=== PATIENT | female | born 1960 | race Caucasian/White ===

== ENCOUNTER 2025-03-08 18:55 | Inpatient (IN) ==
--- NOTE | 2025-03-08 19:33 | Emergency Department Note ---
Impression & Plan Abdominal pain, acute, right upper quadrant, Pancreatitis, acute, Transaminitis, Leukocytosis, Acute cholecystitis, Acute hyperkalemia ED Provider Note HISTORY OF PRESENT ILLNESS: Patient is a 64-year-old female presenting with right upper quadrant abdominal pain. Patient reports that yesterday at around 13 100-14 100, she started having a sharp pain in her right upper quadrant that seem to radiate around into her right posterior shoulder. She states that the symptoms progressively got worse over the last 24 hours and her entire abdomen now hurts. She does report an episode of vomiting earlier this afternoon. Denies any history of abdominal surgeries other than sections. Denies any measured fevers, but does report subjective chills and sweats today. She denies any dysuria or hematuria. She denies any chest pain or shortness of breath. Denies any recent sick contact exposures. She currently rates her pain a 5 out of 10. Reports that today she has been laying in bed all day secondary to pain being worse when she gets up and walks or bends over. ROS: as above PHYSICAL EXAM: Constitutional: Patient appears in no acute distress. HENT: Head: Normocephalic and atraumatic. Eyes: EOMI, PERRL Mouth/Throat: Mucous membranes moist. Neck: Trachea midline. Neck supple. Cardiovascular: RRR, No murmurs, rubs or gallops. Intact distal pulses. Pulmonary/Chest: No respiratory distress. Breath sounds clear and equal bilaterally. No wheezes or rales. Abdominal: Abdomen soft, no rebound or guarding. RUQ TTP Musculoskeletal: No edema, tenderness or deformity noted. Skin: Warm and dry. No rash, erythema, pallor or cyanosis Psychiatric: Appropriate mood and affect for situation. Neurological: Alert and keenly responsive. CN II-XII grossly intact, moving all extremities equally and fully. MDM: - Vitals signs showed hypertension - History obtained via patient. History as above. - Chronic conditions affecting care: none - Differential diagnoses include, but are not limited to: Biliary colic; cholangitis; cholecystitis; hepatitis; right lower lobe pneumonia; pulmonary embolism; pyelonephritis; herpes zoster; perforated duodenal ulcer - Order placed for continuous cardiac monitoring. At this time, monitor showed rate of 85 bpm with normal sinus rhythm, per my interpretation. - External medical records reviewed. - EKG image reviewed interpreted by myself showed normal sinus rhythm. No evidence of acute ischemic changes. No peaked T waves. - Laboratory workup interpreted by myself showed leukocytosis (WBC 108.86); thrombocytopenia (plt 110); normal PT/INR; hyperkalemia (K 6.1); transaminitis (AST 123; ALT 196); elevated lipase (5326); normal total bilirubin; normal troponin - UA negative for infection - Patient given 1L NS, IV dextrose, 5 units IV insulin and 1g IV calcium for hyperkalemia treatment. - US gallbladder showed a oval hypoechoic structure measuring 1.6 x 0.9 cm adjacent to the pancreatic head concerning for potential lymph node or mass. Noted to have cysts in the left liver lobe. Gallbladder is noted to be elongated with layers of tiny stones and sludge dependently but normal wall thickness and negative sonographic Hughes sign. - CT abdomen/pelvis with IV contrast showed edema to the upper abdominal mesentery, inferior to the pancreas and stomach concerning for acute pancreatitis. No evidence of abscess or pseudocyst. Gallbladder wall is thickened and gallbladder is fully distended but not dilated. Concern for potential mild acute cholecystitis. - IV zosyn ordered - Patient was offered pain medication in ER, but she declined. - GI instructional coordinator, Dr. Tomlin, consulted given patient's elevated lipase and transaminitis. He reported at 23:00 that he will see in AM. - Discussed case with gen surgery PA instructional coordinator, Luis Hidalgo, at 23:01. Reports he will come see patient. - Discussion was had with field nurse case manager about patient's case and need for admission - Hospitalist consulted for admission - [facility] ASSESSMENT AND PLAN: Diagnosis: RUQ abdominal pain; acute pancreatitis; transaminitis; leukocytosis; acute hyperkalemia; acute cholecystitis Plan: admit Past Med/Surg History Problem List (Updated 03/08/25 @ 23:49 by Edenilson Clifford PA-C) Acute hyperkalemia (Acute) Acute cholecystitis (Acute) Leukocytosis (Acute) Transaminitis (Acute) Pancreatitis, acute (Acute) Abdominal pain, acute, right upper quadrant (Acute) Adhesive capsulitis of shoulder Medical History (Updated 03/08/25 @ 23:49 by Edenilson Clifford PA-C) DVT (deep venous thrombosis) No pertinent past medical history Surgical History (Updated 03/08/25 @ 23:50 by Edenilson Clifford PA-C) H/O section Tony teeth extracted History of tonsillectomy Fracture of left distal radius Social History Smoking Status: Never smoker Preferred Language: Faroese Feels Safe at Home: Yes Allergies Allergies Allergy/AdvReac Type Severity Reaction Status Date / Time No Known Allergies Allergy Verified 11/02/19 11:18 Home Meds Home Medications Medication Instructions Recorded Confirmed No Known Home Medications 03/08/25 03/08/25 Results & Data (ED) Vital Signs Vital Signs - 24 hr 03/08/25 19:00 03/08/25 19:38 03/08/25 19:55 Temperature 36.1 C L Temperature Source Temporal Artery Scan Pulse Rate 84 74 76 Pulse Rate [Apical] Pulse Rate from SpO2 Sensor Pulse Rhythm Regular Pulse Strength Normal Respiratory Rate 16 18 17 Respiratory Effort / Characteristics Non-Labored Spontaneous Respiratory Depth Normal Respiratory Pattern Regular Blood Pressure 143/78 H 143/68 H Blood Pressure [Left Arm] Blood Pressure Mean 99 89 Blood Pressure Mean [Left Arm] Pulse Oximetry 96 94 Oxygen Delivery Method Room Air Room Air Sepsis Recent Fever Within 48 Hours No Sepsis New/Unexplained Change in Mental Status No Sepsis Action Taken by Nursing No Action Required 03/08/25 19:58 03/08/25 20:00 03/08/25 21:09 Temperature Temperature Source Pulse Rate 72 Pulse Rate [Apical] 69 Pulse Rate from SpO2 Sensor Pulse Rhythm Pulse Strength Respiratory Rate 19 23 Respiratory Effort / Characteristics Non-Labored Spontaneous Respiratory Depth Normal Respiratory Pattern Regular Blood Pressure 142/80 H Blood Pressure [Left Arm] 141/81 H Blood Pressure Mean 100 Blood Pressure Mean [Left Arm] 101 Pulse Oximetry 93 92 94 Oxygen Delivery Method Room Air Room Air Sepsis Recent Fever Within 48 Hours Sepsis New/Unexplained Change in Mental Status Sepsis Action Taken by Nursing 03/08/25 21:09 03/08/25 22:00 03/08/25 22:12 Temperature Temperature Source Pulse Rate 71 78 75 Pulse Rate [Apical] Pulse Rate from SpO2 Sensor 75 Pulse Rhythm Pulse Strength Respiratory Rate 27 H 19 21 Respiratory Effort / Characteristics Respiratory Depth Respiratory Pattern Blood Pressure 141/81 H 142/78 H 142/78 H Blood Pressure [Left Arm] Blood Pressure Mean 101 99 99 Blood Pressure Mean [Left Arm] Pulse Oximetry 95 94 Oxygen Delivery Method Sepsis Recent Fever Within 48 Hours Sepsis New/Unexplained Change in Mental Status Sepsis Action Taken by Nursing 03/08/25 22:42 03/08/25 22:59 03/08/25 23:31 Temperature Temperature Source Pulse Rate 69 67 69 Pulse Rate [Apical] Pulse Rate from SpO2 Sensor Pulse Rhythm Pulse Strength Respiratory Rate 25 H 20 20 Respiratory Effort / Characteristics Respiratory Depth Respiratory Pattern Blood Pressure 106/81 128/66 153/62 H Blood Pressure [Left Arm] Blood Pressure Mean 89 97 107 Blood Pressure Mean [Left Arm] Pulse Oximetry 95 95 96 Oxygen Delivery Method Sepsis Recent Fever Within 48 Hours Sepsis New/Unexplained Change in Mental Status Sepsis Action Taken by Nursing Laboratory Data 03/08/25 21:04 03/08/25 21:04 Lab Results 03/08/25 03/08/25 03/08/25 Range/Units 19:40 21:04 22:38 WBC Cancelled 108.86 H* RBC Cancelled 3.75 L Hgb Cancelled 11.0 L Hct Cancelled 34.9 L MCV Cancelled 93.1 MCH Cancelled 29.3 MCHC Cancelled 31.5 L RDW Std Deviation Cancelled 57.5 H RDW Coeff of Elan Cancelled 16.9 H Plt Count Cancelled 110 L MPV Cancelled 12.2 Immature Gran % (Auto) Cancelled Neut % (Auto) Cancelled Lymph % (Auto) Cancelled Knox % (Auto) Cancelled Eos % (Auto) Cancelled Baso % (Auto) Cancelled Neut # (Auto) Cancelled Lymph # (Auto) Cancelled Knox # (Auto) Cancelled Eos # (Auto) Cancelled Baso # (Auto) Cancelled Immature Gran # (Auto) Cancelled Absolute Nucleated RBC Cancelled Nucleated RBC % (auto) Cancelled Neutrophils % (Manual) Cancelled Band Neutrophils % Cancelled Lymphocytes % (Manual) Cancelled Prolymphocyte % Cancelled Reactive Lymphs % (Man) Cancelled Monocytes % (Manual) Cancelled Eosinophils % (Manual) Cancelled Basophils % (Manual) Cancelled Metamyelocytes % (Man) Cancelled Myelocytes % (Man) Cancelled Promyelocytes % (Man) Cancelled Blast Cells % (Manual) Cancelled Plasma Cell % (Manual) Cancelled Other Cells % Cancelled Nucleated RBC % Cancelled Neutrophils # (Manual) Cancelled Band Neutrophils # Cancelled Total Absolute Neuts Cancelled Lymphocytes # (Manual) Cancelled Prolymphocyte # Cancelled Reactive Lymphs # Cancelled Total Abs Lymphocytes Cancelled Monocytes # (Manual) Cancelled Eosinophils # (Manual) Cancelled Basophils # (Manual) Cancelled Metamyelocytes # (Man) Cancelled Myelocytes # (Manual) Cancelled Promyelocytes # (Man) Cancelled Blast Cells # (Man) Cancelled Plasma Cell # (Manual) Cancelled Other Cells # Cancelled Nucleated RBCs # (Man) Cancelled Hypersegmented Neuts Cancelled Hyposegmented Neuts Cancelled Hypogranular Neuts Cancelled Large Granular Lymphs Cancelled # Lrg Granular Lymphs Cancelled Hairy Cells Cancelled Smudge Cells Cancelled Toxic Granulation Cancelled Toxic Vacuolation Cancelled Dohle Bodies Cancelled Ga Rods Cancelled Platelet Estimate Cancelled Hypogranular Platelets Cancelled Giant Platelets Cancelled Platelet Satelliting Cancelled RBC Morphology Cancelled Polychromasia Cancelled Hypochromasia Cancelled Poikilocytosis Cancelled Basophilic Stippling Cancelled Anisocytosis Cancelled Microcytosis Cancelled Macrocytosis Cancelled Spherocytes Cancelled Pappenheimer Bodies Cancelled Sickle Cells Cancelled Target Cells Cancelled Tear Drop Cells Cancelled Ovalocytes Cancelled Stomatocytes Cancelled Zhang-Elko Bodies Cancelled Echinocytes Cancelled Acanthocytes (Spur) Cancelled Rouleaux Cancelled RBC Agglutinates Cancelled Schistocytes Cancelled Sezary Cell Cancelled PT 10.3 (9.0-12.0) Seconds INR 1.0 (0.9-1.1) Sodium Cancelled 138 Potassium Cancelled 6.1 H* Chloride Cancelled 106 Carbon Dioxide Cancelled 27 Anion Gap Cancelled 5 BUN Cancelled 13 Creatinine Cancelled 0.73 Est Cr Clr Drug Dosing Cancelled 70.3 eGFR Cancelled 90.64 BUN/Creatinine Ratio Cancelled 17.8 Glucose Cancelled 119 H POC Glucose 213 H (70-99) mg/dl Calcium Cancelled 9.0 Total Bilirubin Cancelled 1.0 AST Cancelled 123 H ALT Cancelled 196 H Alkaline Phosphatase Cancelled 82 Troponin I High Sens Cancelled 4.3 Total Protein Cancelled 6.6 Albumin Cancelled 3.9 Globulin Cancelled 2.7 Albumin/Globulin Ratio Cancelled 1.4 Lipase Cancelled 5326 H Urine Color Urine Appearance (Clear) Urine pH (4.5-7.5) Ur Specific [place] (1.000-1.030) Urine Protein (Negative) Urine Glucose (UA) (Negative) Urine Ketones (Negative) Urine Blood (Negative) Urine Nitrite (Negative) Urine Bilirubin (Negative) Urine Urobilinogen (Negative) Ur Leukocyte Esterase (Negative) Urine WBC (Auto) (0-5) /hpf Urine RBC (Auto) (0-2) /hpf U Hyaline Cast (Auto) (0-2) /lpf U Epithel Cells (Auto) (0-2) /hpf Urine Bacteria (Auto) (None Seen) Urine Comment Blood Parasites ID Cancelled 03/08/25 Range/Units Unknown WBC RBC Hgb Hct MCV MCH MCHC RDW Std Deviation RDW Coeff of Elan Plt Count MPV Immature Gran % (Auto) Neut % (Auto) Lymph % (Auto) Knox % (Auto) Eos % (Auto) Baso % (Auto) Neut # (Auto) Lymph # (Auto) Knox # (Auto) Eos # (Auto) Baso # (Auto) Immature Gran # (Auto) Absolute Nucleated RBC Nucleated RBC % (auto) Neutrophils % (Manual) Band Neutrophils % Lymphocytes % (Manual) Prolymphocyte % Reactive Lymphs % (Man) Monocytes % (Manual) Eosinophils % (Manual) Basophils % (Manual) Metamyelocytes % (Man) Myelocytes % (Man) Promyelocytes % (Man) Blast Cells % (Manual) Plasma Cell % (Manual) Other Cells % Nucleated RBC % Neutrophils # (Manual) Band Neutrophils # Total Absolute Neuts Lymphocytes # (Manual) Prolymphocyte # Reactive Lymphs # Total Abs Lymphocytes Monocytes # (Manual) Eosinophils # (Manual) Basophils # (Manual) Metamyelocytes # (Man) Myelocytes # (Manual) Promyelocytes # (Man) Blast Cells # (Man) Plasma Cell # (Manual) Other Cells # Nucleated RBCs # (Man) Hypersegmented Neuts Hyposegmented Neuts Hypogranular Neuts Large Granular Lymphs # Lrg Granular Lymphs Hairy Cells Smudge Cells Toxic Granulation Toxic Vacuolation Dohle Bodies Ga Rods Platelet Estimate Hypogranular Platelets Giant Platelets Platelet Satelliting RBC Morphology Polychromasia Hypochromasia Poikilocytosis Basophilic Stippling Anisocytosis Microcytosis Macrocytosis Spherocytes Pappenheimer Bodies Sickle Cells Target Cells Tear Drop Cells Ovalocytes Stomatocytes Zhang-Elko Bodies Echinocytes Acanthocytes (Spur) Rouleaux RBC Agglutinates Schistocytes Sezary Cell PT (9.0-12.0) Seconds INR (0.9-1.1) Sodium Potassium Chloride Carbon Dioxide Anion Gap BUN Creatinine Est Cr Clr Drug Dosing eGFR BUN/Creatinine Ratio Glucose POC Glucose (70-99) mg/dl Calcium Total Bilirubin AST ALT Alkaline Phosphatase Troponin I High Sens Total Protein Albumin Globulin Albumin/Globulin Ratio Lipase Urine Color Dark Yellow Urine Appearance Clear (Clear) Urine pH 6.5 (4.5-7.5) Ur Specific [place] 1.015 (1.000-1.030) Urine Protein Trace H (Negative) Urine Glucose (UA) Negative (Negative) Urine Ketones Trace H (Negative) Urine Blood Negative (Negative) Urine Nitrite Negative (Negative) Urine Bilirubin Negative (Negative) Urine Urobilinogen Negative (Negative) Ur Leukocyte Esterase Trace H (Negative) Urine WBC (Auto) 0-5 (0-5) /hpf Urine RBC (Auto) 0-2 (0-2) /hpf U Hyaline Cast (Auto) 0-2 (0-2) /lpf U Epithel Cells (Auto) 0-2 (0-2) /hpf Urine Bacteria (Auto) None Seen (None Seen) Urine Comment Blood Parasites ID Administered Medications Discontinued Medications Dextrose (Dextrose 50% 50 Ml Syringe) 50 ml IV NOW ONE Stop: 03/08/25 21:54 Last Admin: 03/08/25 22:01 Dose: 50 ml Documented By: SONJA Sodium Chloride (Nss) 1,000 mls @ 999 mls/hr IV .Q1H1M ONE Stop: 03/08/25 22:53 Last Admin: 03/08/25 22:10 Dose: 999 mls/hr Documented By: SONJA Calcium Gluconate () 1,000 mg in 60 mls @ 240 mls/hr IV NOW STA Stop: 03/08/25 22:07 Last Infusion: 03/08/25 22:35 Dose: Infused Documented By: Admin: 03/08/25 22:03 Dose: 240 mls/hr Documented By: SONJA Piperacillin Sod/Tazobactam Sod (Zosyn) 4.5 gm in 100 mls @ 200 mls/hr IV NOW ONE; Protocol Stop: 03/08/25 22:22 Last Infusion: 03/08/25 22:45 Dose: Infused Documented By: lizet Admin: 03/08/25 22:11 Dose: 200 mls/hr Documented By: SONJA Insulin Human Regular (Novolin-R Insulin Per Unit Charge) 5 units IV NOW STA Stop: 03/08/25 21:54 Last Admin: 03/08/25 22:05 Dose: 5 units Documented By: SONJA Co-signed By: lizet Ioversol (Optiray 320 100ml) 93 ml IV ONCE ONE Stop: 03/08/25 22:28 Last Admin: 03/08/25 22:27 Dose: 93 ml Documented By: GES Imaging Data Radiologist's Impression: Abdomen/Pelvis CT 03/08/25 19:27 Exam(s): CT ABDOMEN + PELVIS With Contrast IV Amt: 93 cc opti 320 EXAM: CT Abdomen and Pelvis With Intravenous Contrast CLINICAL HISTORY: Reason for exam: RUQ pain. TECHNIQUE: Axial computed tomography images of the abdomen and pelvis with intravenous contrast. CTDI is 26.11 mGy and DLP is 1247.62 mGy-cm. Automated exposure control was utilized for the study. A dose lowering technique was utilized adhering to the principles of ALARA. CONTRAST: Patient received 93 cc [id number] of IV contrast COMPARISON: Ultrasound from 03/08/2025 FINDINGS: Lung bases: Unremarkable. No mass. No consolidation. Mediastinum: There is a 4 cm hiatal hernia. ABDOMEN: Liver: There are several smooth lobular cysts in the liver measuring up to 6.1 cm in the left. No follow-up is required. The liver is enlarged measuring 23 cm craniocaudad. No focal liver mass lesion is seen. Gallbladder and bile ducts: Slight gallbladder wall thickening. The gallbladder is fully distended but nondilated. No calcified stones. Pancreas: Unremarkable. No mass. No ductal dilation. Spleen: The spleen is enlarged measuring 16.3 cm craniocaudad. No focal splenic lesion is seen. Adrenals: Unremarkable. No mass. Kidneys and ureters: Unremarkable. No solid mass. No hydronephrosis. Stomach and bowel: Bowel loops are nondilated. No acute inflammatory changes are seen involving the bowel. No mucosal thickening. PELVIS: Appendix: No findings to suggest acute appendicitis. Bladder: Unremarkable. No mass. Reproductive: Unremarkable as visualized. ABDOMEN and PELVIS: Intraperitoneal space: Small amount of edema in the upper abdominal mesentery, inferior to the pancreas and stomach. No free air. No significant fluid collection. Bones/joints: No acute fracture. No dislocation. Soft tissues: Unremarkable. Vasculature: Unremarkable. No abdominal aortic aneurysm. Lymph nodes: There is a single enlarged lymph node in the jean pierre hepatis measuring 12 mm short axis diameter. This is nonspecific. IMPRESSION: 1. Small amount of edema in the upper abdominal mesentery, inferior to the pancreas and stomach. Consider mild acute pancreatitis. No pseudocyst or abscess is seen. 2. Slight gallbladder wall thickening. The gallbladder is fully distended but nondilated. Given the ultrasound study showing cholelithiasis, mild acute cholecystitis can not be excluded. 3. Bowel loops are nondilated. No acute inflammatory changes are seen involving the bowel. Electronically signed by: Farzad Hutchinson MD 03/08/25 22:51 PM Gallbladder Ultrasound 03/08/25 19:27 Exam(s): US GALLBLADDER EXAM: US Abdomen Limited, Gallbladder CLINICAL HISTORY: Reason for exam: RUQ abd pain. PAIN: Abdominal Pain: RUQ Pain TECHNIQUE: Real-time ultrasound of the right upper quadrant with image documentation. COMPARISON: No relevant prior studies available. FINDINGS: Liver: Portal vein is patent with normal hepatopetal flow. There is a slightly lobular 6.4 x 5.5 x 5.2 cm cysts in the left liver lobe. Gallbladder: The gallbladder is elongated measuring 11.4 cm. There is a layer of tiny stones and sludge dependently. The wall thickness is normal. No surrounding fluid. Sonographic Hughes's sign is negative. Common bile duct: The common bile duct is nondilated measuring 6 mm. No choledocholithiasis is seen. Pancreas: The visualized portion of the pancreas is unremarkable. No pancreatic duct dilation is seen. Right kidney: The right kidney measures 8.5 cm with normal appearance. No hydronephrosis. Lymph nodes: There is a smooth oval hypoechoic structure measuring 1.6 x 0.9 cm with fatty hilum adjacent to the pancreatic head, likely and upper normal lymph node. Free fluid: No free fluid. IMPRESSION: 1. There is a smooth oval hypoechoic structure measuring 1.6 x 0.9 cm with fatty hilum adjacent to the pancreatic head, likely and upper normal lymph node. Consider CT for further characterization and to rule out mass. 2. There is a slightly lobular 6.4 x 5.5 x 5.2 cm cysts in the left liver lobe. 3. The gallbladder is elongated measuring 11.4 cm. There is a layer of tiny stones and sludge dependently. The wall thickness is normal. No surrounding fluid. Sonographic Hughes's sign is negative. Electronically signed by: Farzad Hutchinson MD 03/08/25 21:37 PM Discharge Plan Visit Data Chief Complaint: Abdominal Pain Stated Complaint: ABD PAIN. PAIN MOVES AROUND ED Provider: Carie Hargrove Discharge Problem: Abdominal pain, acute, right upper quadrant, Pancreatitis, acute, Transaminitis, Leukocytosis, Acute cholecystitis, Acute hyperkalemia Patient Disposition: Admitted As Inpatient Condition: Fair Forms Stand Alone Forms: [place] Prescriptions Prescriptions: No Action No Known Home Medications Referrals Referrals: PCP,NO [Primary Care Provider] -
[2025-03-08 20:22] LABS: INR 1.0 (0.9-1.1); Prothrombin Time 10.3 Seconds (9.0-12.0)
--- NOTE | 2025-03-08 21:38 | Ultrasound Report ---
Exam(s): US GALLBLADDER EXAM: US Abdomen Limited, Gallbladder CLINICAL HISTORY: Reason for exam: RUQ abd pain. PAIN: Abdominal Pain: RUQ Pain TECHNIQUE: Real-time ultrasound of the right upper quadrant with image documentation. COMPARISON: No relevant prior studies available. FINDINGS: Liver: Portal vein is patent with normal hepatopetal flow. There is a slightly lobular 6.4 x 5.5 x 5.2 cm cysts in the left liver lobe. Gallbladder: The gallbladder is elongated measuring 11.4 cm. There is a layer of tiny stones and sludge dependently. The wall thickness is normal. No surrounding fluid. Sonographic Hughes's sign is negative. Common bile duct: The common bile duct is nondilated measuring 6 mm. No choledocholithiasis is seen. Pancreas: The visualized portion of the pancreas is unremarkable. No pancreatic duct dilation is seen. Right kidney: The right kidney measures 8.5 cm with normal appearance. No hydronephrosis. Lymph nodes: There is a smooth oval hypoechoic structure measuring 1.6 x 0.9 cm with fatty hilum adjacent to the pancreatic head, likely and upper normal lymph node. Free fluid: No free fluid. IMPRESSION: 1. There is a smooth oval hypoechoic structure measuring 1.6 x 0.9 cm with fatty hilum adjacent to the pancreatic head, likely and upper normal lymph node. Consider CT for further characterization and to rule out mass. 2. There is a slightly lobular 6.4 x 5.5 x 5.2 cm cysts in the left liver lobe. 3. The gallbladder is elongated measuring 11.4 cm. There is a layer of tiny stones and sludge dependently. The wall thickness is normal. No surrounding fluid. Sonographic Hughes's sign is negative. Electronically signed by: Farzad Hutchinson MD 03/08/25 21:37 PM
[2025-03-08 21:40] LABS: Appearance Urine Clear (Clear); Bacteria Urine Automated None Seen (None Seen); Cast Urine Automated 0-2 /lpf (0-2); Epithelial Cell Urine Auto 0-2 /hpf (0-2); Glucose Urine UA Negative (Negative); RBC Urine Automated 0-2 /hpf (0-2); WBC Urine Automated 0-5 /hpf (0-5)
[2025-03-08 21:46] LABS: Alanine Aminotransferase 196.0 U/L (7-52); Albumin Globulin Ratio 1.4 (0.9-2); Albumin Level 3.9 gm/dl (3.4-5.0); Alkaline Phosphatase 82.0 U/L (34-104); Anion Gap 5.0 (3-11); Bilirubin,Total 1.0 mg/dl (0.2-1.0); Blood Urea Nitrogen 13.0 mg/dl (6-23); Calcium 9.0 mg/dl (8.6-10.3); Carbon Dioxide 27.0 mmol/L (21-32); Chloride 106.0 mmol/L (98-107); Creatinine Clr Calc Pharmacy 70.3 ml/min; Globulin 2.7 gm/dl (2.5-4.0); Glucose 119.0 mg/dl (70-99(Fasting)); Potassium 6.1 mmol/L (3.5-5.1); Sodium 138.0 mmol/L (136-145); Total Protein 6.6 gm/dl (6.0-8.3)
[2025-03-08 21:51] LABS: Hematocrit (blood only) 34.9 % (37.0-47.0); Hemoglobin 11.0 g/dL (12.0-16.0); Mean Corpuscular Hemoglobin 29.3 pg (25.0-34.0); Mean Corpuscular Volume 93.1 fL (80.0-100.0); Platelet Count 110 K/uL (130-400); RDW Standard Deviation 57.5 fL (36.4-46.3); Red Blood Count 3.75 M/uL (4.20-5.40); White Blood Count 108.86 K/ul (4.8-10.8)
[2025-03-08] MEDS: DEXTROSE 50% 50 ML SYRINGE IV ONE (22:01)
[2025-03-08] MEDS: CALCIUM GLUCONATE 1,000 MG/60 ML BAG IV STA (22:03)
[2025-03-08] MEDS: NovoLIN-R INSULIN PER UNIT CHARGE IV STA (22:05)
[2025-03-08] MEDS: SODIUM CHLORIDE 0.9% 1,000 ML IV ONE (22:10)
[2025-03-08] MEDS: PIPERACILLIN/TAZOBACTAM 4.5 GM/100 ML BAG IV ONE (22:11)
[2025-03-08] MEDS: OPTIRAY 320 100ml IV ONE (22:27)
--- NOTE | 2025-03-08 22:52 | CT Scan Report ---
Exam(s): CT ABDOMEN + PELVIS With Contrast IV Amt: 93 cc opti 320 EXAM: CT Abdomen and Pelvis With Intravenous Contrast CLINICAL HISTORY: Reason for exam: RUQ pain. TECHNIQUE: Axial computed tomography images of the abdomen and pelvis with intravenous contrast. CTDI is 26.11 mGy and DLP is 1247.62 mGy-cm. Automated exposure control was utilized for the study. A dose lowering technique was utilized adhering to the principles of ALARA. CONTRAST: Patient received 93 cc [id number] of IV contrast COMPARISON: Ultrasound from 03/08/2025 FINDINGS: Lung bases: Unremarkable. No mass. No consolidation. Mediastinum: There is a 4 cm hiatal hernia. ABDOMEN: Liver: There are several smooth lobular cysts in the liver measuring up to 6.1 cm in the left. No follow-up is required. The liver is enlarged measuring 23 cm craniocaudad. No focal liver mass lesion is seen. Gallbladder and bile ducts: Slight gallbladder wall thickening. The gallbladder is fully distended but nondilated. No calcified stones. Pancreas: Unremarkable. No mass. No ductal dilation. Spleen: The spleen is enlarged measuring 16.3 cm craniocaudad. No focal splenic lesion is seen. Adrenals: Unremarkable. No mass. Kidneys and ureters: Unremarkable. No solid mass. No hydronephrosis. Stomach and bowel: Bowel loops are nondilated. No acute inflammatory changes are seen involving the bowel. No mucosal thickening. PELVIS: Appendix: No findings to suggest acute appendicitis. Bladder: Unremarkable. No mass. Reproductive: Unremarkable as visualized. ABDOMEN and PELVIS: Intraperitoneal space: Small amount of edema in the upper abdominal mesentery, inferior to the pancreas and stomach. No free air. No significant fluid collection. Bones/joints: No acute fracture. No dislocation. Soft tissues: Unremarkable. Vasculature: Unremarkable. No abdominal aortic aneurysm. Lymph nodes: There is a single enlarged lymph node in the jean pierre hepatis measuring 12 mm short axis diameter. This is nonspecific. IMPRESSION: 1. Small amount of edema in the upper abdominal mesentery, inferior to the pancreas and stomach. Consider mild acute pancreatitis. No pseudocyst or abscess is seen. 2. Slight gallbladder wall thickening. The gallbladder is fully distended but nondilated. Given the ultrasound study showing cholelithiasis, mild acute cholecystitis can not be excluded. 3. Bowel loops are nondilated. No acute inflammatory changes are seen involving the bowel. Electronically signed by: Farzad uHtchinson MD 03/08/25 22:51 PM
--- NOTE | 2025-03-08 23:40 | Surgery Consultation ---
<Statement entered by Triston Ignacio MD - 03/09/25 09:24> I saw and examined this patient, she is passing some flatus this morning. She is non toxic in appearance and states that the pain is more of a spasm, bloating type feeling. She did have a normal colonoscopy around 10 years ago, per her report. MRCP does show gallstones and inflammation. Bloodwork continues to show significantly elevated WBC--much higher than would be expected for infection/inflammation. I recommend further workup of this--possible heme/onc consult. Will obtain HIDA scan for gallbladder. If positive and patient is high risk due to hematologic issues, would consider cholecystostomy tube. Will continue to follow. Date of Consultation March 08, 2025 Assessment & Plan (1) Acute cholecystitis: (2) Pancreatitis, acute: Plan Patient is a 64-year-old female with a past medical history significant for DVT approximately 10 years ago, no longer on anticoagulation, who presents to [facility] emergency department complaining of abdominal pain x 2 days. Evaluation in the emergency department suggests possible gallstone pancreatitis and questionable cholecystitis. Patient currently has no right upper quadrant abdominal pain, negative Hughes sign, and no peritoneal signs, so no indication for emergent cholecystectomy at this time. We feel it would be beneficial to consult gastroenterology for evaluation for possible pancreatitis, may be gallstone pancreatitis, and she may benefit from an MRCP for further evaluation of this. Also concerning, is the markedly elevated white blood cell count with splenomegaly of unclear etiology. The patient does admit she has not seen a a primary care physician in at least 5 years, so it is unclear if this is an acute change or if she has chronically elevated white blood cell count. We would recommend admission to the hospitalist service for further evaluation of this and management of her hyperkalemia. General surgery will follow along and determine optimal timing for possible cholecystectomy. Keep n.p.o., IV fluids, pain medication as needed, but patient is refusing narcotic pain medication. Continue antibiotics for now, however have a low suspicion of acute cholecystitis. History of Present Illness Reason for Consultation: acute cholecystitis, possible gallstone pancreatitis History of Present Illness Patient is a 64-year-old female with a past medical history significant for DVT approximately 10 years ago, no longer on anticoagulation, who presents to [facility] emergency department complaining of abdominal pain x 2 days. Patient localizes her abdominal pain to the right side, described as crampy, moderate in intensity, with no radiation, no aggravating factors, but seemed improved when laying on her left side. Patient states her abdominal pain began yesterday at approximately 2 or 3 PM, while she was resting. It was initially mild then progressed and was constant, then became more diffuse throughout her entire abdomen. She admits to mild nausea and then states she vomited, described as bilious, nonbloody, and her abdominal pain had somewhat improved but still persisted. She also admits to fevers, however admits that she did not take her temperature, and she felt flushed. She states she tried taking ibuprofen, but with little relief. She denies any constipation or diarrhea, no chest pain or shortness of breath, no urinary symptoms. She states that this pain continued to worsen and so she came to the emergency department for evaluation. Upon her initial evaluation, she was hemodynamically stable and afebrile. Her exam was significant for right-sided abdominal pain without any overt peritoneal signs. Her labs were significant for markedly elevated white blood cell count of 108, also with hyperkalemia of 6.1, and an elevated lipase of 5326. She had a CAT scan of the abdomen pelvis which showed mild pancreatitis as well as gallbladder wall thickening, but no clear stones. She had an ultrasound of the abdomen pelvis that did show a dilated gallbladder and tiny stones and sludge, but no evidence of biliary ductal dilation, did mention a a hypoechoic structure at the pancreatic head suggestive of possible lymph node. General surgery was then consulted for evaluation for possible cholecystitis. Allergies Allergy/AdvReac Type Severity Reaction Status Date / Time No Known Allergies Allergy Verified 11/02/19 11:18 Home Medications Medication Instructions Recorded Confirmed Type No Known Home Medications 03/08/25 03/08/25 History Patient History Medical History (Updated 03/08/25 @ 23:49 by Edenilson Clifford PA-C) DVT (deep venous thrombosis) No pertinent past medical history Surgical History (Updated 03/08/25 @ 23:50 by Edenilson Clifford PA-C) H/O section [place] teeth extracted History of tonsillectomy Fracture of left distal radius Social History Smoking Status: Never smoker Preferred Language: Swedish Feels Safe at Home: Yes Review of Systems Review of Systems: All systems reviewed & are unremarkable except as noted in HPI & below Physical Exam Physical Exam: Gen: Awake and alert, resting comfortably in bed in NAD CV: RRR PULM: non-labored breathing Abd: Abd soft, non-distended, mild tenderness to palpation to the right lower quadrant, no epigastric tenderness and no tenderness to the right upper quadrant, negative Hughes sign ext: no edema to bilateral lower ext, SCDs in place, non-tender, feet warm and well perfused Results & Data Vital Signs (Past 12 Hours) Vital Signs Temp Pulse Pulse Resp BP BP Pulse Ox 03/08/25 22:59 67 20 128/66 95 03/08/25 22:42 69 25 H 106/81 95 03/08/25 22:12 75 21 142/78 H 94 03/08/25 22:00 78 19 142/78 H 03/08/25 21:09 71 27 H 141/81 H 95 03/08/25 21:09 69 23 141/81 H 94 03/08/25 20:00 72 19 142/80 H 92 03/08/25 19:58 93 03/08/25 19:55 76 17 143/68 H 03/08/25 19:38 74 18 94 03/08/25 19:00 36.1 C L 84 16 143/78 H 96 O2 Del Method 03/08/25 22:59 03/08/25 22:42 03/08/25 22:12 03/08/25 22:00 03/08/25 21:09 03/08/25 21:09 Room Air 03/08/25 20:00 03/08/25 19:58 Room Air 03/08/25 19:55 03/08/25 19:38 Room Air 03/08/25 19:00 Room Air Diagnostic Findings CT abd/pelvis: IMPRESSION: 1. Small amount of edema in the upper abdominal mesentery, inferior to the pancreas and stomach. Consider mild acute pancreatitis. No pseudocyst or abscess is seen. 2. Slight gallbladder wall thickening. The gallbladder is fully distended but nondilated. Given the ultrasound study showing cholelithiasis, mild acute cholecystitis can not be excluded. 3. Bowel loops are nondilated. No acute inflammatory changes are seen involving the bowel. Ultrasound abd: IMPRESSION: 1. There is a smooth oval hypoechoic structure measuring 1.6 x 0.9 cm with fatty hilum adjacent to the pancreatic head, likely and upper normal lymph node. Consider CT for further characterization and to rule out mass. 2. There is a slightly lobular 6.4 x 5.5 x 5.2 cm cysts in the left liver lobe. 3. The gallbladder is elongated measuring 11.4 cm. There is a layer of tiny stones and sludge dependently. The wall thickness is normal. No surrounding fluid. Sonographic Hughes's sign is negative. PG Care Time/CCT Total # of Minutes Spent Total Time Spent with Patient: Total time spent is greater than 50% in coordination of care (as documented) at patient's floor/unit and/or counseling patient: [place] [address] IN/OBS CONSULT LVL 5,80M Patient Type New History Problem Focused Exam Problem Focused Medical Decision Making High Complexity Diagnoses Acute cholecystitis K81.0 Pancreatitis, acute K85.90
--- NOTE | 2025-03-08 23:43 | History & Physical Report ---
Date of Service March 08, 2025 Assessment & Plan (1) Pancreatitis, acute: (2) Acute cholecystitis: (3) Transaminitis: (4) Acute hyperkalemia: (5) Leukocytosis: Plan Patient is a 64-year-old female without significant past medical history. She presented due to 2 days of right upper quadrant pain that was worsening and became diffuse as well as 1 episode of vomiting. Workup in the ED revealed possible acute cholecystitis with stones present as well as acute pancreatitis (lipase 5326). She has transaminitis, hyperkalemia, and significant leukocytosis with WBC 108.86. She is being admitted under the hospital medicine team with consults placed to GI and general surgery. #Acute gallstone pancreatitis/acute cholecystis - Lipase 5326, AST 123, ALT 196, with marked leukocytosis noted below. CTAP showed acute pancreatitis, slight gallbladder wall thickening. Gallbladder US showed layer of stones and sludge with normal wall thickness. Abd nontender on admission. - received 1L NSS bolus in ED, continue fluid resuscitation with LR @ 125 ml/hr - NPO status - nausea control with Zofran prn - pain control with IV Toradol prn, morphine 2/4mg for breakthrough pain - avoiding Tylenol with transaminitis - continue Zosyn 4.5g IV q8h - GI and general surgery teams consulted - MRCP ordered - trend CBC and CMP #hyperkalemia - K+ 6.1, other electrolytes stable, renal function stable. EKG without T wave changes. Etiology unclear. - given 1g IV calcium gluconate, insulin 5 units IV, dextrose 1 amp in ED - repeat BMP 0100 and with AM labs - monitor on telemetry #leukocytosis - WBC 108.86, unable to obtain differential on admission. Etiology unclear on admission - differential includes but not limited to acute infection above, laboratory error, or malignancy as patient has not seen a PCP in many years and splenomegaly noted on CT. - CBC with diff trend - peripheral smear ordered - consider hem/onc consult once resulted Addendum 0100 - discussion with lab on admission who reached out to pathology - differential consistent with CLL rather than acute process - formal consult placed VTE ppx: SCDs - possible surgical management, thrombocytopenia, and low risk Dispo: PCU Admission and Anticipated Discharge Date Admission Date: 03/08/25 - note that admission orders were placed prior to midnight History of Present Illness Chief Complaint: abd pain Primary Care Provider: NO PCP Patient is a 64-year-old female without significant past medical history. She presented due to 2 days of right upper quadrant pain that was worsening and became diffuse as well as 1 episode of vomiting. Workup in the ED revealed acute cholecystitis with possible stones present as well as acute pancreatitis (lipase 5326). She has transaminitis, hyperkalemia, and significant leukocytosis with WBC 108.86. she is being admitted under the hospital medicine team with consults placed to GI and general surgery. Patient seen at bedside. She stated Thursday from 03-20 she ate her normal lunch which consisted of veggies, and [place] muffin, and barbecue chicken. Around 2 to 3 PM she developed significant right upper quadrant pain that radiated to her shoulder. Throughout the evening Thursday she had persistent right upper quadrant pain which she stated was similar to an episode about 1 year ago and another episode several years ago. These previous episodes were associated with her eating peanuts and resolved after she rested that evening. This time her symptoms persisted throughout the night which was concerning for her. After grocery shopping Thursday she had 2 deviled eggs at home and then had an episode of vomiting. After the episode she stated her abdominal pain was all over and seemed to move frequently. She denies any radiation to her back. She has had several episodes of chills and shaking however no reported fevers at home. Her pain is currently 0/10 at bedside if she is laying in 1 position which is most comfortable on her left side. She does feel significantly dehydrated as she has had poor p.o. intake for the past 2 days and also reported feeling bloated which is now resolving. She denies any nicotine or alcohol use, she does not use any home medications. She wishes to be full code. Discussion with general surgery team - will keep NPO, order MRCP, consult GI, and treat conservatively for now. No emergent need for acute cholecystectomy. Discussion with labdifficulty obtaining differential given machine malfunction however later returned appearing as though there is significant lymphocytes and pathologist believes this is CLL rather than an acute process. Peripheral smear and path consult to be sent Allergies Allergy/AdvReac Type Severity Reaction Status Date / Time lactose AdvReac Unknown Gastrointestinal Verified 03/09/25 16:39 Upset Home Medications Medication Instructions Recorded Confirmed Type No Known Home Medications 03/08/25 03/08/25 History Past Med/Surg History Problem List (Updated 03/09/25 @ 09:35 by Triston Ignacio MD) Gallstones and inflammation of gallbladder without obstruction Acute hyperkalemia (Acute) Acute cholecystitis (Acute) Leukocytosis (Acute) Transaminitis (Acute) Pancreatitis, acute (Acute) Abdominal pain, acute, right upper quadrant (Acute) Adhesive capsulitis of shoulder Medical History (Updated 03/09/25 @ 09:35 by Triston Ignacio MD) DVT (deep venous thrombosis) No pertinent past medical history Surgical History (Updated 03/08/25 @ 23:50 by Edenilson Clifford PA-C) H/O section [place] teeth extracted History of tonsillectomy Fracture of left distal radius Social History Smoking Status: Never smoker Hx Alcohol Use: No Hx Substance Use: No Preferred Language: [place] Communication Ability: Effective Fans Clerk Required: No Beliefs That Will Affect Care: None Current Living Situation: Spouse Feels Safe at Home: Yes Safety Concerns: Feels Safe At This Time Assistive Devices: Glasses Review of Systems Review of Systems: see HPI Physical Exam Physical Exam: The patient is awake, alert and oriented 3, well developed and well nourished, normocephalic and atraumatic, in no acute distress. Non-toxic appearing. HEENT- EOMI, mucous membranes dry. Hearing grossly intact. Heart-normal S1 and S2. No murmurs, rubs or gallops. Lungs-clear bilaterally, no respiratory distress, no accessory muscle use. Abdomen-normal bowel sounds and soft. No ascites noted. Non-tender to palpation. Extremities- no clubbing, cyanosis, or edema. Rheumatologic-normal range of motion. Psychiatric-normal affect. Results & Data Results & Data Vital Signs (Past 12 Hours) Vital Signs Temp Pulse Pulse Resp BP BP Pulse Ox 03/08/25 22:59 67 20 128/66 95 03/08/25 22:42 69 25 H 106/81 95 03/08/25 22:12 75 21 142/78 H 94 03/08/25 22:00 78 19 142/78 H 03/08/25 21:09 71 27 H 141/81 H 95 03/08/25 21:09 69 23 141/81 H 94 03/08/25 20:00 72 19 142/80 H 92 03/08/25 19:58 93 03/08/25 19:55 76 17 143/68 H 03/08/25 19:38 74 18 94 03/08/25 19:00 36.1 C L 84 16 143/78 H 96 O2 Del Method 03/08/25 22:59 03/08/25 22:42 03/08/25 22:12 03/08/25 22:00 03/08/25 21:09 03/08/25 21:09 Room Air 03/08/25 20:00 03/08/25 19:58 Room Air 03/08/25 19:55 03/08/25 19:38 Room Air 03/08/25 19:00 Room Air Laboratory Results Reviewed CBC, PT/INR, CMP, UA, troponin, lipase Diagnostic Findings reviewed AP CT and gallbladder US Medications Administered ED - 1 L NSS bolus, 1g IV calcium gluconate, insulin 5 units IV, dextrose 50 ml, zosyn 4.5 g IV ECG Additional Comments: NSR, no noted t wave abnormalities rate 70 qtc 421 Code Status & VTE Plan Code Status full code VTE Prophylaxis Plan VTE Prophylaxis will be ordered: Yes Supervising Physician Co-Signing Physician Notes Patient seen and examined, chart reviewed, case discussed with DEBORA Howell and I agree with the assessment and plan as above. In brief, patient is a pleasant 64yo female, does not receive routine medical care presenting with two days of RUQ abdominal pain. Workup with concern for acute cholecystitis, gallstone pancreatitis. Also with markedly elevated WBC count, lymphocyte predominant. No prior CBCs available for comparison Exam is largely unremarkable with exception of RUQ abdominal pain. Negative Hughes's sign. No jaundice/icterus Labs and images reviewed Assessment/Plan -Check MRCP -GI and General Surgery consultations appreciated -Peripheral smear/pathology consultation appreciated to further differentiate elevated WBCs, concern for possible CLL. May need Heme-Onc consultation -Remainder of plan as above PG Care Time/CCT Total # of Minutes Spent Total Time Spent with Patient: Total time spent is greater than 50% in coordination of care (as documented) at patient's floor/unit and/or counseling patient: Coding Level of Care Code 31428 INT INP/OBS CARE 3/75MIN Diagnoses Pancreatitis, acute K85.90 Acute cholecystitis K81.0 Transaminitis R74.01 Acute hyperkalemia E87.5 Leukocytosis D72.829
[2025-03-09 01:08] LABS: ALC (manual) 100.15 K/uL (1.2-3.4); ANC (manual) 8.71 K/uL (1.4-6.5); Prolymphocyte # (manual) 7.62 K/uL (0-0); Prolymphocyte % (manual) 7 %; Reactive Lymphocytes # (manual) 25.04 K/uL; Reactive Lymphocytes % (manual) 23 %
[2025-03-09 01:52] LABS: Anion Gap 4.0 (3-11); Blood Urea Nitrogen 12.0 mg/dl (6-23); Calcium 8.7 mg/dl (8.6-10.3); Carbon Dioxide 28.0 mmol/L (21-32); Chloride 108.0 mmol/L (98-107); Creatinine Clr Calc Pharmacy 78.9 ml/min; Glucose 94.0 mg/dl (70-99(Fasting)); Potassium 5.5 mmol/L (3.5-5.1); Sodium 140.0 mmol/L (136-145)
[2025-03-09] MEDS ORDERED: MoRPHine SULFATE 4 MG/ML 1 ML CARP\\VIAL IV PRN (02:19)
[2025-03-09] MEDS ORDERED: MELATONIN 3 MG TAB PO PRN (02:19)
[2025-03-09] MEDS ORDERED: POLYETHYLENE (MIRALAX) 17 GM PACK PO PRN (02:19)
[2025-03-09] MEDS ORDERED: DOCUSATE SODIUM 100 MG CAP PO PRN (02:19)
[2025-03-09] MEDS ORDERED: MoRPHine SULFATE 2 MG/ML CARP IV PRN (02:19)
[2025-03-09] MEDS ORDERED: ONDANSETRON INJ 2 MG/ML 2 ML VIAL IV PRN (02:19)
[2025-03-09] MEDS: LACTATED RINGER'S 1,000 ML IV SCH (03:00)
--- NOTE | 2025-03-09 03:33 | Magnetic Resonance Report ---
EXAM: MR MRCP CLINICAL HISTORY: acute cholecystitis, questionable stone TECHNIQUE: Multiplanar/multisequence MRI of the abdomen was performed without use of gadolinium. COMPARISON: None. FINDINGS: The liver is enlarged in size measuring 22cm in cranio-caudal dimension. A well defined lobulated T2 hyperintense cystic lesion measuring 6cm is seen in left lobe. Few other similar T2 hyperintense cystic lesions measuring 1 to 2cm are seen in the left lobe. Rest of the liver shows normal signal intensity. No evidence of intrahepatic biliary ductal dilatation. The gallbladder is overdistended and shows multiple small T2 hypointense calculi measuring 3 to 5mm. Mild gall bladder wall edema with pericholecystic fluid is seen. Limited evaluation of the bowel secondary to peristalsis, however, demonstrates no definitive abnormality. The pancreas is unremarkable. Spleen is enlarged measuring 17cm in size with normal signal intensity. The kidneys demonstrate no evidence of contour-deforming mass lesion. The adrenal glands demonstrate no gross mass. No evidence of mesenteric mass. Minimal ascites is seen. IMPRESSION: 1. Over distended gall bladder with cholelithiasis and mild wall edema suggestive of acute cholecystitis. Advised clinical correlation. 2. 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 3. Splenomegaly. 4. Minimal ascites. Electronically signed by Kristopher Chamberlain 03-09-2025 03:33 AM
[2025-03-09] MEDS: PIPERACILLIN/TAZOBACTAM 4.5 GM/100 ML BAG IV SCH (05:45)
[2025-03-09 07:19] LABS: Hematocrit (blood only) 34.1 % (37.0-47.0); Hemoglobin 10.7 g/dL (12.0-16.0); Mean Corpuscular Hemoglobin 29.1 pg (25.0-34.0); Mean Corpuscular Volume 92.7 fL (80.0-100.0); Platelet Count 105 K/uL (130-400); RDW Standard Deviation 56.8 fL (36.4-46.3); Red Blood Count 3.68 M/uL (4.20-5.40); White Blood Count 115.34 K/ul (4.8-10.8)
[2025-03-09 07:42] LABS: Albumin Level 3.8 gm/dl (3.4-5.0); Anion Gap 7.0 (3-11); Bilirubin,Total 0.9 mg/dl (0.2-1.0); Calcium 8.7 mg/dl (8.6-10.3); Carbon Dioxide 23.0 mmol/L (21-32); Chloride 110.0 mmol/L (98-107); Magnesium 1.9 mg/dl (1.7-2.4); Potassium 4.6 mmol/L (3.5-5.1); Sodium 140.0 mmol/L (136-145)
[2025-03-09 07:48] LABS: Alanine Aminotransferase 143.0 U/L (7-52); Albumin Globulin Ratio 1.8 (0.9-2); Alkaline Phosphatase 71.0 U/L (34-104); Blood Urea Nitrogen 11.0 mg/dl (6-23); Creatinine Clr Calc Pharmacy 88.4 ml/min; Globulin 2.1 gm/dl (2.5-4.0); Glucose 102.0 mg/dl (70-99(Fasting)); Total Protein 5.9 gm/dl (6.0-8.3)
[2025-03-09 08:27] LABS: ALC (manual) 108.42 K/uL (1.2-3.4); ANC (manual) 5.77 K/uL (1.4-6.5); Prolymphocyte # (manual) 13.84 K/uL (0-0); Prolymphocyte % (manual) 12 %; Smudge Cells Present
[2025-03-09 09:01] LABS: Lipase 1264 U/L (11-82); Triglycerides 182 mg/dl (0-150)
--- NOTE | 2025-03-09 09:33 | Surgery Progress Note ---
Date of Service March 09, 2025 Assessment & Plan (1) Gallstones and inflammation of gallbladder without obstruction: Plan Consulted for possible cholecystitis. Patient is non toxic in appearance and states that the pain is more of a spasm, bloating type feeling. She did have a normal colonoscopy around 10 years ago, per her report. MRCP does show gallstones and inflammation. Bloodwork continues to show significantly elevated WBC--much higher than would be expected for infection/inflammation. I recommend further workup of this--possible heme/onc consult. Will obtain HIDA scan for gallbladder. If positive and patient is high risk due to hematologic issues, would consider cholecystostomy tube. Will continue to follow. Admission and Anticipated Discharge Date Admission Date: March 08, 2025 Subjective Patient does report feeling more comfortable. Is passing some flatus. Denies nausea and vomiting. Reports pain is more a spasm, diffuse type pain. Imaging and bloodwork reviewed. WBC remains markedly elevated--much more than would be seen with infection/inflammation. mrcp with gallstones and gallbladder inflammation. Review of Systems Review of Systems: All systems reviewed & are unremarkable except as noted in HPI & below Physical Exam Constitutional: WD/WN, vitals as above Eyes: PERRL, conjunctivae normal, anicteric sclerae ENMT: external ear and nose normal, oropharynx normal Neck: trachea midline, no thyromegaly Respiratory: normal effort Cardiovascular: RRR, no murmur, no edema Gastrointestinal (Abdomen): soft, non distended, non tender Psychiatric: A+Ox3, euthymic affect Results & Data Vital Signs (Past 12 Hours) Vital Signs Temp Pulse Pulse Resp BP BP Pulse Ox 03/09/25 08:22 36.9 C 75 19 122/65 95 03/09/25 02:44 03/09/25 02:10 36.3 C L 67 16 141/56 H 97 03/09/25 01:00 73 20 129/64 95 03/09/25 00:49 68 03/09/25 00:00 69 20 94/55 L 95 03/08/25 23:31 69 20 153/62 H 96 03/08/25 22:59 67 20 128/66 95 03/08/25 22:42 69 25 H 106/81 95 03/08/25 22:12 75 21 142/78 H 94 03/08/25 22:00 78 19 142/78 H O2 Del Method 03/09/25 08:22 Room Air 03/09/25 02:44 Room Air 03/09/25 02:10 Room Air 03/09/25 01:00 03/09/25 00:49 03/09/25 00:00 Room Air 03/08/25 23:31 03/08/25 22:59 03/08/25 22:42 03/08/25 22:12 03/08/25 22:00 Sodium 140 mmol/L (136-145) 03/09/25 Potassium 4.6 mmol/L (3.5-5.1) 03/09/25 Chloride 110 mmol/L (98-107) H 03/09/25 Carbon Dioxide 23 mmol/L (21-32) 03/09/25 Anion Gap 7 (3-11) 03/09/25 BUN 11 mg/dl (6-23) 03/09/25 Creatinine 0.58 mg/dl (0.6-1.2) L 03/09/25 eGFR 99.74 03/09/25 BUN/Creatinine Ratio 19.0 (10-20) 03/09/25 Glucose 102 mg/dl (70-99(Fasting)) H 03/09/25 Calcium 8.7 mg/dl (8.6-10.3) 03/09/25 Total Bilirubin 0.9 mg/dl (0.2-1.0) 03/09/25 AST 62 U/L (13-39) H 03/09/25 ALT 143 U/L (7-52) H 03/09/25 Alkaline Phosphatase 71 U/L (34-104) 03/09/25 Total Protein 5.9 gm/dl (6.0-8.3) L 03/09/25 Albumin 3.8 gm/dl (3.4-5.0) 03/09/25 Globulin 2.1 gm/dl (2.5-4.0) L 03/09/25 Triglycerides 182 mg/dl (0-150) H 03/09/25 Laboratory Data Notes: LFTs elevated, but improving, compared to yesterday. Bilirubin is normal. Lipase elevated but improving. K improved. PG Care Time/CCT Total # of Minutes Spent Total Time Spent with Patient: Total time spent is greater than 50% in coordination of care (as documented) at patient's floor/unit and/or counseling patient: Coding Level of Care Code 55751 SUB INP/OBS CARE MIN Diagnoses Gallstones and inflammation of gallbladder without obstruction K80.00
--- NOTE | 2025-03-09 11:39 | Nuclear Medicine Report ---
NUCLEAR MEDICINE HEPATOBILIARY SCAN CLINICAL HISTORY: Abdominal pain. Distended gallbladder. Cholelithiasis. COMPARISON: Right upper quadrant ultrasound and CT of the abdomen and pelvis March 08, 2025. MRCP March 09, 2025. TECHNIQUE: 5.4 mCi of technetium 99m Choletec IV was injected at 10:20 AM on March 09, 2025. Imm ediately following injection, imaging of the abdomen was carried out for 60 minutes in the anterior p rojection. FINDINGS: Hepatic uptake of radiotracer is prompt and homogeneous. Radiotracer activity is identifie d within the common bile duct at 30 minutes, gallbladder at 25 minutes and small bowel at 30 minutes. There is normal distribution of radiotracer. IMPRESSION: Patent cystic duct. No scintigraphic evidence for acute cholecystitis. ACT 112: Negative or not required by law. Electronically signed by: Markel Hernandez M.D. 03/09/2025 11:38 AM
[2025-03-09 13:23] LABS: Chlamydia pneumoniae PCR Not Detected (NotDetected); Coronavirus 229E PCR Not Detected (NotDetected); Coronavirus CoV-2 (COVID19)PCR Not Detected (NotDetected); Coronavirus HKU1 PCR Not Detected (NotDetected); Coronavirus NL63 PCR Not Detected (NotDetected); Coronavirus OC43PCR Not Detected (NotDetected); Human Metapneumovirus PCR Not Detected (NotDetected); Parainfluenza Virus 1 PCR Not Detected (NotDetected); Parainfluenza Virus 2 PCR Not Detected (NotDetected); Parainfluenza Virus 3 PCR Not Detected (NotDetected); Parainfluenza Virus 4 PCR Not Detected (NotDetected); Respiratory Syncytial VirusPCR Not Detected (NotDetected); Rhinovirus/Enterovirus PCR Not Detected (NotDetected)
--- NOTE | 2025-03-09 13:50 | Gastrointestinal Consultation ---
Date of Consultation March 09, 2025 Assessment & Plan (1) Pancreatitis, acute: (2) Transaminitis: Plan Patient admitted with abdominal pain as well as a rise in her LFTs. Imaging was not suggestive of a common bile duct stone, but likely she passed one which contributed to pancreatitis. - recommend NPO, IVF, pain control. - surgery following on her gallbladder and for possible intervention. - no need for ERCP at this time. - recommend heme/onc evaluation of leukocytosis. - Further recommendations to come with Supervising GI provider on medical rounds. Please see co-signature comments. Supervising Physician Co-Signing Physician Notes Gallstone pancreatitis. Ultrasound does show small stones in the gallbladder. MRCP does not show evidence of a common duct stone. Liver tests are normalizing the lipase is normalizing. Advance diet as tolerated. [place] criteria. Cholecystectomy at the discretion and timing of surgery. With small gallstones she is at risk of further choledocholithiasis. History of Present Illness Reason for Consultation: pancreatitis, ?CBD stone Requesting Physician: Carie Hargrove MD Attending Physician: Abdi Cottrell MD, PhD History of Present Illness Patient is a 64 year old female without significant past medical history who presented to the ED on 03/08/25 with complaints of RUQ pain. She admits that she has had episodes of this one and off for years and has always attributed it to her gallbladder. Her most recent episode was severe and accompanied by vomiting. Workup in the ED revealed possible acute cholecystitis with stones present as well as acute pancreatitis (lipase 5326). She has transaminitis, hyperkalemia, and significant leukocytosis with WBC 108.86. She was admitted under the hospital medicine team with consults placed to GI for possible CBD stone. Currently, she feels somewhat better, but still some abdominal pain. no further nausea/vomiting. the remainder of the GI ros are unremarkable. 03/09/25 wbc 115.34, hgb 10.7, hct 34.1, plts 105, T bili 0.9, AST 63, ALT 143, Alk 71. Lipase 1264. MRCP 03/09/25 - 1. Over distended gall bladder with cholelithiasis and mild wall edema suggestive of acute cholecystitis. Advised clinical correlation. 2. 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 3. Splenomegaly. 4. Minimal ascites. Allergies Allergy/AdvReac Type Severity Reaction Status Date / Time No Known Allergies Allergy Verified 11/02/19 11:18 Home Medications Medication Instructions Recorded Confirmed Type No Known Home Medications 03/08/25 03/08/25 History Patient History Medical History (Updated 03/09/25 @ 09:35 by Triston Ignacio MD) DVT (deep venous thrombosis) No pertinent past medical history Surgical History (Updated 03/08/25 @ 23:50 by DARRYL PatiñoC) H/O section [place] teeth extracted History of tonsillectomy Fracture of left distal radius Social History Smoking Status: Never smoker Hx Alcohol Use: No Hx Substance Use: No Preferred Language: Nicaraguan 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 Psychiatric: Orientation: alert and oriented x 3 Affect: euthymic affect Results & Data Vital Signs (Past 12 Hours) Vital Signs Temp Pulse Pulse Resp BP Pulse Ox O2 Del Method 03/09/25 12:04 97.5 F L 83 18 98/56 L 95 Room Air 03/09/25 08:22 98.4 F 75 19 122/65 95 Room Air 03/09/25 08:00 86 03/09/25 02:44 Room Air 03/09/25 02:10 97.3 F L 67 16 141/56 H 97 Room Air Coding Level of Care Code 85629 INT INP/OBS CARE 2/55MIN Diagnoses Pancreatitis, acute K85.90 Transaminitis R74.01
--- NOTE | 2025-03-09 18:37 | Electrocardiogram Report ---
Test Reason : Blood Pressure : */* mmHG Vent. Rate : 70 BPM Atrial Rate : 70 BPM P-R Int : 156 ms QRS Dur : 74 ms QT Int : 390 ms P-R-T Axes : 65 1 32 degrees QTcB Int : 421 ms Normal sinus rhythm Normal ECG No previous ECGs available Confirmed by David Chawla ([id number]) on 03/09/2025 6:37:33 PM Referred By: REFERRED SELF Confirmed By: David Chawla
--- NOTE | 2025-03-09 20:41 | Hospitalist Progress Note ---
Date of Service March 09, 2025 Assessment & Plan (1) Pancreatitis, acute: Plan: RESOLVING with a tincture of time. Advancing diet from NPO, 1 liter of 0.9% NS @ 999 mL/hr (03/08/2025, 10:10pm), 2 liters of lactated Ringers @ 125 mL/hr (03/09/2025, 3:00am, 1:16pm) to a clear liquid diet on 03/09/2025 pm, followed by anticipated advancement from clear liquid diet to full liquid diet on 03/10/2025 am, then soft/low residue diet on 03/10/2025 lunch/dinner. (2) Acute cholecystitis: Plan: RESOLVING with zosyn 4.5g IV x 1 dose (03/08/2025, 10:11pm), followed by zosyn 4.5g IV q8 x 2 doses (day #1/ on 03/09/2025, 5:45am, 1:17pm). (3) Transaminitis: Plan: RESOLVING with zosyn 4.5g IV x 1 dose (03/08/2025, 10:11pm), followed by zosyn 4.5g IV q8 x 2 doses (day #1/ on 03/09/2025, 5:45am, 1:17pm). cf., AST 123 U/L, ALT 196, ALK PHOS 82 (03/08/2025, 9:04pm). cf., AST 62 U/L, ALT 143, ALK PHOS 71 (03/09/2025, 6:43am). (4) Acute hyperkalemia: Plan: RESOLVED with regular insulin 5 units IV x 1 dose (03/08/2025, 10:05pm), calcium gluconate 1g IV x 1 dose (03/08/2025, 10:03pm), 50mL of [id number] IV x 1 dose (03/08/2025, 10:01pm). cf., K 6.1 mmol/L (03/08/2025, 9:04pm). cf., K 5.5 mmol/L (03/09/2025, 12:55am). cf., K 4.6 mmol/L (03/09/2025, 6:43am). (5) Leukocytosis: Plan: cf., WBC 108.86, N8 L62 prolymphocytes7 reactive lymphocytes 23 (03/08/2025, 9:04pm). cf., WBC 115.34, no differential (03/09/2025, 6:43am). Given lymphocytic predominance of acute leukocytosis without blasts, myelocytes, or promyelocytes, and the presence of hepatosplenomegaly on 03/09/2025, 12:31am MRCP, I surmise that this patient suffers from a clonal proliferation of immature B cells (e.g., CLL), and which may be further evaluated in hospital by flow cytometry to elaborate on B cell and T cell numbers and which may be further evaluated out of hospital with outpatient bone marrow biopsy to confirm the diagnosis of indolent CLL. 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 Plan Patient is a 64-year-old female without significant past medical history. She presented due to 2 days of right upper quadrant pain that was worsening and became diffuse as well as 1 episode of vomiting. Workup in the ED revealed possible acute cholecystitis with stones present as well as acute pancreatitis (lipase 5326). She has transaminitis, hyperkalemia, and significant leukocytosis with WBC 108.86. She is being admitted under the hospital medicine team with consults placed to GI and general surgery. #Acute gallstone pancreatitis/acute cholecystis - Lipase 5326, AST 123, ALT 196, with marked leukocytosis noted below. CTAP showed acute pancreatitis, slight gallbladder wall thickening. Gallbladder US showed layer of stones and sludge with normal wall thickness. Abd nontender on admission. - received 1L NSS bolus in ED, continue fluid resuscitation with LR @ 125 ml/hr - NPO status - nausea control with Zofran prn - pain control with IV Toradol prn, morphine 2/4mg for breakthrough pain - avoiding Tylenol with transaminitis - continue Zosyn 4.5g IV q8h - GI and general surgery teams consulted - MRCP ordered - trend CBC and CMP #hyperkalemia - K+ 6.1, other electrolytes stable, renal function stable. EKG without T wave changes. Etiology unclear. - given 1g IV calcium gluconate, insulin 5 units IV, dextrose 1 amp in ED - repeat BMP 0100 and with AM labs - monitor on telemetry #leukocytosis - WBC 108.86, unable to obtain differential on admission. Etiology unclear on admission - differential includes but not limited to acute infection above, laboratory error, or malignancy as patient has not seen a PCP in many years and splenomegaly noted on CT. - CBC with diff trend - peripheral smear ordered - consider hem/onc consult once resulted Addendum 0100 - discussion with lab on admission who reached out to pathology - differential consistent with CLL rather than acute process - formal consult placed VTE ppx: SCDs - possible surgical management, thrombocytopenia, and low risk Dispo: PCU Admission and Anticipated Discharge Date Admission Date: March 08, 2025 Subjective "I feel 50% better than yesterday (03/08/2025); no nausea or vomit or diarrhea today (03/09/2025). Belly pain is a lot more manageable today (03/09/2025); it is not constant, just off and on. I still don't feel hungry for any food; no appetite at all. I guess I am still sick then. I would like to continue getting the antibiotics and avoid any gallbladder surgery during this hospital stay. I have to follow up the WBC being high; some of the doctors said I might have CLL. So, I want to make sure that CLL is ok and that my gallbladder and pancreas go back to normal first." Review of Systems Constitutional: Negative for antecedent/coincident fevers, chills, diaphoresis, cough, wheeze, sore throat, hemoptysis, chest pains, palpitations, pleurisy, nausea, vomiting, diarrhea, pelvic pain, hematemesis, hematochezia, melena, hematuria, dysuria, frequency, urgency, headaches, dizziness, lightheadedness, visual changes, hearing changes, weakness, falls, syncope, trauma, travel history, sick contacts, or food/drug ingestions novel or new. All other review of systems are reported as negative by the patient on 03/09/2025. Physical Exam Constitutional: General: Comfortable, coherent, cooperative. Wide awake and alert. Not confused, lethargic, or obtunded. Patient speaks in complete, fluent, and articulate sentences without pause, interruption, cough, or wheeze. HEENT: Normocephalic, atraumatic. PERRL. EOMI. No nystagmus, gaze paresis, anisocoria, miosis, mydriasis, hyphema, scleral injection, conjunctivitis, or pterygium. No otorrhea. No rhinorrhea. No pharyngeal erythema, edema, ulceration, or discharge. Neck: Supple, no stridor, bruit, or goiter. Jugular venous pressure is estimated at 3 cm above the sternal angle of Jovan, which is 5 cm above the level of the right atrium. Lymph: No pre-auricular, post-auricular, supraclavicular, infraclavicular, axillary, epitrochlear, or inguinal adenopathy. Chest: Symmetric rise and fall with respirations. Non-tender to palpation. Heart: Regular rate and rhythm. S1 and S2 noted. No S3 or S4 summation gallop noted. Grade II/ early systolic murmur @ LLSB without radiation to the carot ids, axilla, or back, and which remains invariant in regards to the respiratory cycle. Lungs: Clear to auscultation and percussion. No audible expiratory wheeze, egophony, pectoriloquy, increase in tactile fremitus, or flatness/dullness to percussion at the bases. Abdomen: Soft, non-tender, non-distended. No rebound, guarding, Hughes's sign, or organomegaly. Bowel sounds auscultated in all 4 quadrants. Pelvis: Soft, non-tender, non-distended. Extremities: No clubbing, cyanosis, or edema. 2+ pedal pulses bilaterally. Skin: No decubitus ulcer, exanthem, or enanthem. Neurology: Alert and oriented in regards to person, place, time, and situation. DTR+. 5/5 motor strength in all 4 extremities, both proximally and distally. Urology: No silverman catheter. No purewick. No urethral discharge. Psych: Smiles appropriately. No flat affect. Results & Data Results & Data Vital Signs (Past 12 Hours) Vital Signs Temp Pulse Pulse Resp BP Pulse Ox O2 Del Method 03/09/25 19:29 37.2 C 88 18 132/79 96 Room Air 03/09/25 17:17 85 03/09/25 15:03 37.1 C 84 19 118/76 94 Room Air 03/09/25 12:04 36.4 C L 83 18 98/56 L 95 Room Air Laboratory Results WBC 108.86, N8 L62 prolymphocytes7 reactive lymphocytes 23 (03/08/2025, 9:04pm). WBC 115.34, no differential (03/09/2025, 6:43am). Hb 11.0 (03/08/2025, 9:04pm). Hb 10.7 (03/09/2025, 6:43am). Platelet 110 (03/08/2025, 9:04pm). Platelet 105 (03/09/2025, 6:43am). Lipase 5,326 U/L (03/08/2025, 9:04pm). Lipase 1,264 U/L (03/09/2025, 8:06am). Triglycerides 182 mg/dL (, 8:06am). Diagnostic Findings Abdomen/Pelvis CT 03/08/25 19:27 Exam(s): CT ABDOMEN + PELVIS With Contrast IV Amt: 93 cc opti 320 EXAM: CT Abdomen and Pelvis With Intravenous Contrast CLINICAL HISTORY: Reason for exam: RUQ pain. TECHNIQUE: Axial computed tomography images of the abdomen and pelvis with intravenous contrast. CTDI is 26.11 mGy and DLP is 1247.62 mGy-cm. Automated exposure control was utilized for the study. A dose lowering technique was utilized adhering to the principles of ALARA. CONTRAST: Patient received 93 cc [id number] of IV contrast COMPARISON: Ultrasound from 03/08/2025 FINDINGS: Lung bases: Unremarkable. No mass. No consolidation. Mediastinum: There is a 4 cm hiatal hernia. ABDOMEN: Liver: There are several smooth lobular cysts in the liver measuring up to 6.1 cm in the left. No follow-up is required. The liver is enlarged measuring 23 cm craniocaudad. No focal liver mass lesion is seen. Gallbladder and bile ducts: Slight gallbladder wall thickening. The gallbladder is fully distended but nondilated. No calcified stones. Pancreas: Unremarkable. No mass. No ductal dilation. Spleen: The spleen is enlarged measuring 16.3 cm craniocaudad. No focal splenic lesion is seen. Adrenals: Unremarkable. No mass. Kidneys and ureters: Unremarkable. No solid mass. No hydronephrosis. Stomach and bowel: Bowel loops are nondilated. No acute inflammatory changes are seen involving the bowel. No mucosal thickening. PELVIS: Appendix: No findings to suggest acute appendicitis. Bladder: Unremarkable. No mass. Reproductive: Unremarkable as visualized. ABDOMEN and PELVIS: Intraperitoneal space: Small amount of edema in the upper abdominal mesentery, inferior to the pancreas and stomach. No free air. No significant fluid collection. Bones/joints: No acute fracture. No dislocation. Soft tissues: Unremarkable. Vasculature: Unremarkable. No abdominal aortic aneurysm. Lymph nodes: There is a single enlarged lymph node in the jean pierre hepatis measuring 12 mm short axis diameter. This is nonspecific. IMPRESSION: 1. Small amount of edema in the upper abdominal mesentery, inferior to the pancreas and stomach. Consider mild acute pancreatitis. No pseudocyst or abscess is seen. 2. Slight gallbladder wall thickening. The gallbladder is fully distended but nondilated. Given the ultrasound study showing cholelithiasis, mild acute cholecystitis can not be excluded. 3. Bowel loops are nondilated. No acute inflammatory changes are seen involving the bowel. Electronically signed by: Farzad Hutchinson MD 03/08/25 22:51 PM Gallbladder Ultrasound 03/08/25 19:27 Exam(s): US GALLBLADDER EXAM: US Abdomen Limited, Gallbladder CLINICAL HISTORY: Reason for exam: RUQ abd pain. PAIN: Abdominal Pain: RUQ Pain TECHNIQUE: Real-time ultrasound of the right upper quadrant with image documentation. COMPARISON: No relevant prior studies available. FINDINGS: Liver: Portal vein is patent with normal hepatopetal flow. There is a slightly lobular 6.4 x 5.5 x 5.2 cm cysts in the left liver lobe. Gallbladder: The gallbladder is elongated measuring 11.4 cm. There is a layer of tiny stones and sludge dependently. The wall thickness is normal. No surrounding fluid. Sonographic Hughes's sign is negative. Common bile duct: The common bile duct is nondilated measuring 6 mm. No choledocholithiasis is seen. Pancreas: The visualized portion of the pancreas is unremarkable. No pancreatic duct dilation is seen. Right kidney: The right kidney measures 8.5 cm with normal appearance. No hydronephrosis. Lymph nodes: There is a smooth oval hypoechoic structure measuring 1.6 x 0.9 cm with fatty hilum adjacent to the pancreatic head, likely and upper normal lymph node. Free fluid: No free fluid. IMPRESSION: 1. There is a smooth oval hypoechoic structure measuring 1.6 x 0.9 cm with fatty hilum adjacent to the pancreatic head, likely and upper normal lymph node. Consider CT for further characterization and to rule out mass. 2. There is a slightly lobular 6.4 x 5.5 x 5.2 cm cysts in the left liver lobe. 3. The gallbladder is elongated measuring 11.4 cm. There is a layer of tiny stones and sludge dependently. The wall thickness is normal. No surrounding fluid. Sonographic Hughes's sign is negative. Electronically signed by: Farzad Hutchinson MD 03/08/25 21:37 PM Cholangiopancreatography MRI 03/09/25 00:31 EXAM: MR MRCP CLINICAL HISTORY: acute cholecystitis, questionable stone TECHNIQUE: Multiplanar/multisequence MRI of the abdomen was performed without use of gadolinium. COMPARISON: None. FINDINGS: The liver is enlarged in size measuring 22cm in cranio-caudal dimension. A well defined lobulated T2 hyperintense cystic lesion measuring 6cm is seen in left lobe. Few other similar T2 hyperintense cystic lesions measuring 1 to 2cm are seen in the left lobe. Rest of the liver shows normal signal intensity. No evidence of intrahepatic biliary ductal dilatation. The gallbladder is overdistended and shows multiple small T2 hypointense calculi measuring 3 to 5mm. Mild gall bladder wall edema with pericholecystic fluid is seen. Limited evaluation of the bowel secondary to peristalsis, however, demonstrates no definitive abnormality. The pancreas is unremarkable. Spleen is enlarged measuring 17cm in size with normal signal intensity. The kidneys demonstrate no evidence of contour-deforming mass lesion. The adrenal glands demonstrate no gross mass. No evidence of mesenteric mass. Minimal ascites is seen. IMPRESSION: 1. Over distended gall bladder with cholelithiasis and mild wall edema suggestive of acute cholecystitis. Advised clinical correlation. 2. 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 3. Splenomegaly. 4. Minimal ascites. Electronically signed by Kristopher Chamberlain 03-09-2025 03:33 AM Hepatobiliary Scan Nuclear Medicine 03/09/25 09:36 NUCLEAR MEDICINE HEPATOBILIARY SCAN CLINICAL HISTORY: Abdominal pain. Distended gallbladder. Cholelithiasis. COMPARISON: Right upper quadrant ultrasound and CT of the abdomen and pelvis March 08, 2025. MRCP March 09, 2025. TECHNIQUE: 5.4 mCi of technetium 99m Choletec IV was injected at 10:20 AM on March 09, 2025. Immediately following injection, imaging of the abdomen was carried out for 60 minutes in the anterior projection. FINDINGS: Hepatic uptake of radiotracer is prompt and homogeneous. Radiotracer activity is identified within the common bile duct at 30 minutes, gallbladder at 25 minutes and small bowel at 30 minutes. There is normal distribution of radiotracer. IMPRESSION: Patent cystic duct. No scintigraphic evidence for acute cholecystitis. ACT 112: Negative or not required by law. Electronically signed by: Markel Hernandez M.D. 03/09/2025 11:38 AM PG Care Time/CCT Total # of Minutes Spent Total Time Spent with Patient: Total time spent is greater than 50% in coordination of care (as documented) at patient's floor/unit and/or counseling patient: Coding Level of Care Code 57099 SUB INP/OBS CARE 2/35MIN Diagnoses Pancreatitis, acute K85.90 Acute cholecystitis K81.0 Transaminitis R74.01 Acute hyperkalemia E87.5 Leukocytosis D72.829
[2025-03-10 09:26] LABS: Albumin Level 3.5 gm/dl (3.4-5.0); Anion Gap 5.0 (3-11); Bilirubin,Total 0.9 mg/dl (0.2-1.0); Calcium 8.1 mg/dl (8.6-10.3); Carbon Dioxide 25.0 mmol/L (21-32); Chloride 107.0 mmol/L (98-107); Potassium 5.1 mmol/L (3.5-5.1); Sodium 137.0 mmol/L (136-145)
[2025-03-10 09:32] LABS: Alanine Aminotransferase 80.0 U/L (7-52); Albumin Globulin Ratio 1.7 (0.9-2); Alkaline Phosphatase 59.0 U/L (34-104); Blood Urea Nitrogen 10.0 mg/dl (6-23); Creatinine Clr Calc Pharmacy 86.2 ml/min; Globulin 2.1 gm/dl (2.5-4.0); Glucose 114.0 mg/dl (70-99(Fasting)); Lipase 81.0 U/L (11-82); Total Protein 5.6 gm/dl (6.0-8.3)
[2025-03-10 09:35] LABS: Hematocrit (blood only) 29.7 % (37.0-47.0); Hemoglobin 9.5 g/dL (12.0-16.0); Mean Corpuscular Hemoglobin 29.5 pg (25.0-34.0); Mean Corpuscular Volume 92.2 fL (80.0-100.0); Platelet Count 99 K/uL (130-400); RDW Standard Deviation 57.8 fL (36.4-46.3); Red Blood Count 3.22 M/uL (4.20-5.40); White Blood Count 95.78 K/ul (4.8-10.8)
[2025-03-10 10:14] LABS: Immature Granulocytes # (auto) 0.38 K/uL (0.01-0.20); Immature Granulocytes % (auto) 0.4 %; Smudge Cells Present
--- NOTE | 2025-03-10 10:40 | Surgery Progress Note ---
Date of Service March 10, 2025 Assessment & Plan (1) Gallstones and inflammation of gallbladder without obstruction: Plan: General surgery was consulted for possible acute cholecystitis at time of patient admission however was also found to have elevated LFTs and significant leukocytosis. MRCP with no choledocholithiasis however did show gallstones and inflammation and a HIDA scan was also obtained yesterday that did not show any acute cholecystitis. Patient clinically with no signs of acute cholecystitis and at this time she does not require any emergent surgical intervention. Recommend continuing workup for hematology issues, pathology thus far showing CLL rather than acute process. I discussed with the patient about following up with general surgery as an outpatient and she is agreeable with this plan. From a surgery perspective patient can have a diet as tolerated. General surgery will sign off, please re-consult with any questions or concerns. Admission and Anticipated Discharge Date Admission Date: March 08, 2025 Subjective Patient seen and evaluated this morning. States she is feeling great compared to time of admission Patient underwent HIDA scan yesterday without any acute cholecystitis WBC still significantly elevated at 95.7, however pathology consistent thus far with CLL rather than acute process LFTs improved Denies any abdominal pain, nausea or vomiting . Tolerated breakfast without any issues Physical Exam Constitutional: WD/WN, vitals as above Respiratory: normal respiratory effort, lungs clear to auscultation Cardiovascular: Rate/Rhythm: regular rhythm Gastrointestinal (Abdomen): Abdomen soft, nondistended, nontender Negative Hughes's sign Results & Data Vital Signs (Past 12 Hours) Vital Signs Temp Pulse Pulse Resp BP Pulse Ox Pulse Ox 03/10/25 09:09 79 03/10/25 07:57 36.7 C 82 19 104/55 L 94 03/10/25 04:22 95 03/10/25 03:06 37.4 C 75 18 103/67 95 03/09/25 22:45 37.7 C H 83 20 115/70 96 O2 Del Method O2 Del Method 03/10/25 09:09 03/10/25 07:57 Room Air 03/10/25 04:22 Room Air 03/10/25 03:06 Room Air 03/09/25 22:45 Room Air Diagnostic Findings NUCLEAR MEDICINE HEPATOBILIARY SCAN CLINICAL HISTORY: Abdominal pain. Distended gallbladder. Cholelithiasis. COMPARISON: Right upper quadrant ultrasound and CT of the abdomen and pelvis March 08, 2025. MRCP March 09, 2025. TECHNIQUE: 5.4 mCi of technetium 99m Choletec IV was injected at 10:20 AM on March 09, 2025. Immediately following injection, imaging of the abdomen was carried out for 60 minutes in the anterior projection. FINDINGS: Hepatic uptake of radiotracer is prompt and homogeneous. Radiotracer activity is identified within the common bile duct at 30 minutes, gallbladder at 25 minutes and small bowel at 30 minutes. There is normal distribution of radiotracer. IMPRESSION: Patent cystic duct. No scintigraphic evidence for acute cholecys titis. PG Care Time/CCT Total # of Minutes Spent Total Time Spent with Patient: Total time spent is greater than 50% in coordination of care (as documented) at patient's floor/unit and/or counseling patient: C[place] [address] SUB INP/OBS CARE 1/25MIN Patient Type Established History Problem Focused Exam Problem Focused Medical Decision Making Straight Forward Diagnoses Gallstones and inflammation of gallbladder without obstruction K80.00
--- NOTE | 2025-03-10 13:18 | Gastroenterology Progress Note ---
Date of Service March 10, 2025 Assessment & Plan (1) Pancreatitis, acute: Plan [id number] is seen today for epigastric pain with N/V. Imaging and LFTs consistent with gallstone pancreatitis with a stone passed. MRCP negative for retained stone - no ERCP indicated. HIDA negative for cholecystitis. Clinically she is feeling much better and lipase has normalized. (1) Gallstone pancreatitis. - Recommend advancing diet as tolerated. Recommend low fat diet x 6 weeks. - Continue to avoid alcohol and tobacco products. - F/U with General Surgery as directed in outpatient. - Thank you for allowing us to participate in the care of this patient. Please call with any acute changes, questions or concerns. Please see addendum below with additional recommendation from my supervising physician. Admission and Anticipated Discharge Date Admission Date: March 08, 2025 Supervising Physician Co-Signing Physician Notes As above agree. Cholecystectomy at general surgery's discretion prevent future gallstone pancreatitis Subjective Patient is a 64 year old female without significant past medical history who presented to the ED on 03/08/25 with complaints of RUQ pain. She admits that she has had episodes of this one and off for years and has always attributed it to her gallbladder. Her most recent episode was severe and accompanied by vomiting. Workup in the ED revealed possible acute cholecystitis with stones present as well as acute pancreatitis (lipase 5326). She has transaminitis, hyperkalemia, and significant leukocytosis with WBC 108.86. She was admitted under the hospital medicine team with consults placed to GI for possible CBD stone. Today she reports she's feeling much better. She has tolerated clear liquid meals x 2 and is planning to advance diet with her lunch meal. MRCP was completed and did not reveal any stone within the common bile duct or pancreas. Overdistended gall bladder with cholelithiasis was noted with mild wall edema suggestive of acute cholecystitis. Clinical correlation advised. F/U HIDA completed - Patent cystic duct. No scintigraphic evidence for acute cholecystitis. Lipase has normalized today. She denies any fevers, chills, N/V/D, melena or hematochezia. She has mild epigastric abdominal pain that is continuing to improve. the remainder of the GI ros are unremarkable. 03/09/25 wbc 115.34, hgb 10.7, hct 34.1, plts 105, T bili 0.9, AST 63, ALT 143, Alk 71. Lipase 1264. MRCP 03/09/25 - 1. Over distended gall bladder with cholelithiasis and mild wall edema suggestive of acute cholecystitis. Advised clinical correlation. 2. 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 3. Splenomegaly. 4. Minimal ascites. Review of Systems Review of Systems: See HPI Physical Exam Physical Exam: Constitutional: NAD. Alert. Answering questions appropriately. Respiratory: Breathing is even, non-labored. Lungs lau are clear to auscultation anteriorly. Cardiovascular: Regular Rate and Rhythm, no murmurs, rubs or gallops appreciated. Gastrointestinal (Abdomen): Normoactive bowel sounds x4, soft, non-distended, non-tender. Musculoskeletal: Lying in bed comfortably. No peripheral edema. Results & Data Results & Data Vital Signs (Past 12 Hours) Vital Signs Temp Pulse Pulse Resp BP Pulse Ox Pulse Ox 03/10/25 11:48 98.4 F 85 18 116/74 95 03/10/25 09:09 79 03/10/25 07:57 98.1 F 82 19 104/55 L 94 03/10/25 04:22 95 03/10/25 03:06 99.3 F 75 18 103/67 95 O2 Del Method O2 Del Method 03/10/25 11:48 Room Air 03/10/25 09:09 03/10/25 07:57 Room Air 03/10/25 04:22 Room Air 03/10/25 03:06 Room Air PG Care Time/CCT Total # of Minutes Spent Total Time Spent with Patient: Total time spent is greater than 50% in coordination of care (as documented) at patient's floor/unit and/or counseling patient: Coding Level of Care Code 97952 SUB INP/OBS CARE 2/35MIN Diagnoses Pancreatitis, acute K85.90
--- NOTE | 2025-03-10 17:42 | Hospitalist Progress Note ---
Date of Service March 10, 2025 Assessment & Plan (1) Pancreatitis, acute: Plan: RESOLVING with a tincture of time. Advancing diet from NPO, 1 liter of 0.9% NS @ 999 mL/hr (03/08/2025, 10:10pm), 2 liters of lactated Ringers @ 125 mL/hr (03/09/2025, 3:00am, 1:16pm) to a clear liquid diet on 03/09/2025 pm, followed by advancement from clear liquid diet to regular diet on 03/10/2025 am. (2) Acute cholecystitis: Plan: RESOLVING with zosyn 4.5g IV x 1 dose (03/08/2025, 10:11pm), followed by zosyn 4.5g IV q8 x 5 doses thus far (day #1/ on 03/09/2025, 5:45am, 1:17pm, 10:00pm; 03/10/2025, 5:40am, 1:55pm). (3) Transaminitis: Plan: RESOLVING with zosyn 4.5g IV x 1 dose (03/08/2025, 10:11pm), followed by zosyn 4.5g IV q8 x 5 doses thus far (day #1/ on 03/09/2025, 5:45am, 1:17pm, 10:00pm; 03/10/2025, 5:40am, 1:55pm). cf., AST 123 U/L, ALT 196 U/L, ALK PHOS 82 U/L (03/08/2025, 9:04pm). cf., AST 62 U/L, ALT 143 U/L, ALK PHOS 71 U/L (03/09/2025, 6:43am). cf., AST 28 U/L, ALT 80 U/L, ALK PHOS 59 U/L (03/10/2025, 8:47am). (4) Acute hyperkalemia: Plan: RESOLVED with regular insulin 5 units IV x 1 dose (03/08/2025, 10:05pm), calcium gluconate 1g IV x 1 dose (03/08/2025, 10:03pm), 50mL of [id number] IV x 1 dose (03/08/2025, 10:01pm). cf., K 6.1 mmol/L (03/08/2025, 9:04pm). cf., K 5.5 mmol/L (03/09/2025, 12:55am). cf., K 4.6 mmol/L (03/09/2025, 6:43am). cf., K 5.1 mmol/L (03/10/2025, 8:47am). (5) Leukocytosis: Plan: cf., WBC 108.86, N8 L62 prolymphocytes7 reactive lymphocytes 23 (03/08/2025, 9:04pm). cf., WBC 115.34, no differential smudge cells noted (03/09/2025, 6:43am). cf., WBC 95.78, N6 L78 M14 E1 smudge cells noted (03/10/2025, 8:47am). 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 Plan Patient is a 64-year-old female without significant past medical history. She presented due to 2 days of right upper quadrant pain that was worsening and became diffuse as well as 1 episode of vomiting. Workup in the ED revealed possible acute cholecystitis with stones present as well as acute pancreatitis (lipase 5326). She has transaminitis, hyperkalemia, and significant leukocytosis with WBC 108.86. She is being admitted under the hospital medicine team with consults placed to GI and general surgery. #Acute gallstone pancreatitis/acute cholecystis - Lipase 5326, AST 123, ALT 196, with marked leukocytosis noted below. CTAP showed acute pancreatitis, slight gallbladder wall thickening. Gallbladder US showed layer of stones and sludge with normal wall thickness. Abd nontender on admission. - received 1L NSS bolus in ED, continue fluid resuscitation with LR @ 125 ml/hr - NPO status - nausea control with Zofran prn - pain control with IV Toradol prn, morphine 2/4mg for breakthrough pain - avoiding Tylenol with transaminitis - continue Zosyn 4.5g IV q8h - GI and general surgery teams consulted - MRCP ordered - trend CBC and CMP #hyperkalemia - K+ 6.1, other electrolytes stable, renal function stable. EKG without T wave changes. Etiology unclear. - given 1g IV calcium gluconate, insulin 5 units IV, dextrose 1 amp in ED - repeat BMP 0100 and with AM labs - monitor on telemetry #leukocytosis - WBC 108.86, unable to obtain differential on admission. Etiology unclear on admission - differential includes but not limited to acute infection above, laboratory error, or malignancy as patient has not seen a PCP in many years and splenomegaly noted on CT. - CBC with diff trend - peripheral smear ordered - consider hem/onc consult once resulted Addendum 0100 - discussion with lab on admission who reached out to pathology - differential consistent with CLL rather than acute process - formal consult placed VTE ppx: SCDs - possible surgical management, thrombocytopenia, and low risk Dispo: PCU Admission and Anticipated Discharge Date Admission Date: March 08, 2025 Review of Systems Constitutional: Negative for antecedent/coincident fevers, chills, diaphoresis, cough, wheeze, sore throat, hemoptysis, chest pains, palpitations, pleurisy, nausea, vomiting, diarrhea, pelvic pain, hematemesis, hematochezia, melena, hematuria, dysuria, frequency, urgency, headaches, dizziness, lightheadedness, visual changes, hearing changes, weakness, falls, syncope, trauma, travel history, sick contacts, or food/drug ingestions novel or new. All other review of systems are reported as negative by the patient on 03/10/2025. Physical Exam Constitutional: General: Comfortable, coherent, cooperative. Wide awake and alert. Not confused, lethargic, or obtunded. Patient speaks in complete, fluent, and articulate sentences without pause, interruption, cough, or wheeze. HEENT: Normocephalic, atraumatic. PERRL. EOMI. No nystagmus, gaze paresis, anisocoria, miosis, mydriasis, hyphema, scleral injection, conjunctivitis, or pterygium. No otorrhea. No rhinorrhea. No pharyngeal erythema, edema, ulceration, or discharge. Neck: Supple, no stridor, bruit, or goiter. Jugular venous pressure is estimated at 3 cm above the sternal angle of Jovan, which is 5 cm above the level of the right atrium. Lymph: No pre-auricular, post-auricular, supraclavicular, infraclavicular, axillary, epitrochlear, or inguinal adenopathy. Chest: Symmetric rise and fall with respirations. Non-tender to palpation. Heart: Regular rate and rhythm. S1 and S2 noted. No S3 or S4 summation gallop noted. Grade II/ early systolic murmur @ LLSB without radiation to the carotids, axilla, or back, and which remains invariant in regards to the respiratory cycle. Lungs: Clear to auscultation and percussion. No audible expiratory wheeze, egophony, pectoriloquy, increase in tactile fremitus, or flatness/dullness to percussion at the bases. Abdomen: Soft, non-tender, non-distended. No rebound, guarding, Hughes's sign, or organomegaly. Bowel sounds auscultated in all 4 quadrants. Pelvis: Soft, non-tender, non-distended. Extremities: No clubbing, cyanosis, or edema. 2+ pedal pulses bilaterally. Skin: No decubitus ulcer, exanthem, or enanthem. Neurology: Alert and oriented in regards to person, place, time, and situation. DTR+. 5/5 motor strength in all 4 extremities, both proximally and distally. Urology: No silverman catheter. No purewick. No urethral discharge. Psych: Smiles appropriately. No flat affect. Results & Data Results & Data Vital Signs (Past 12 Hours) Vital Signs Temp Pulse Pulse Resp BP Pulse Ox O2 Del Method 03/10/25 15:57 38.0 C H 78 20 124/79 95 Room Air 03/10/25 11:48 36.9 C 85 18 116/74 95 Room Air 03/10/25 09:09 79 03/10/25 07:57 36.7 C 82 19 104/55 L 94 Room Air Laboratory Results WBC 108.86, N8 L62 prolymphocytes7 reactive lymphocytes 23 (03/08/2025, 9:04pm). WBC 115.34, no differential smudge cells noted (03/09/2025, 6:43am). WBC 95.78, N6 L78 M14 E1 smudge cells noted (03/10/2025, 8:47am). Flow cytometry pending (as per [facility] Pathologist Dr. Coleen Carpenter on 03/08/2025, 9:04pm). Hb 11.0 (03/08/2025, 9:04pm). Hb 10.7 (03/09/2025, 6:43am). Hb 9.5 (03/10/2025, 8:47am). Platelet 110 (03/08/2025, 9:04pm). Platelet 105 (03/09/2025, 6:43am). Platelet 99 (03/10/2025, 8:47am). Lipase 5,326 U/L (03/08/2025, 9:04pm). Lipase 1,264 U/L (03/09/2025, 8:06am). Lipase 81 U/L (03/10/2025, 8:47am). Triglycerides 182 mg/dL (, 8:06am). AST 123 U/L, ALT 196 U/L, ALK PHOS 82 U/L (03/08/2025, 9:04pm). AST 62 U/L, ALT 143 U/L, ALK PHOS 71 U/L (03/09/2025, 6:43am). AST 28 U/L, ALT 80 U/L, ALK PHOS 59 U/L (03/10/2025, 8:47am). Diagnostic Findings Abdomen/Pelvis CT 03/08/25 19:27 Exam(s): CT ABDOMEN + PELVIS With Contrast IV Amt: 93 cc opti 320 EXAM: CT Abdomen and Pelvis With Intravenous Contrast CLINICAL HISTORY: Reason for exam: RUQ pain. TECHNIQUE: Axial computed tomography images of the abdomen and pelvis with intravenous contrast. CTDI is 26.11 mGy and DLP is 1247.62 mGy-cm. Automated exposure control was utilized for the study. A dose lowering technique was utilized adhering to the principles of ALARA. CONTRAST: Patient received 93 cc [id number] of IV contrast COMPARISON: Ultrasound from 03/08/2025 FINDINGS: Lung bases: Unremarkable. No mass. No consolidation. Mediastinum: There is a 4 cm hiatal hernia. ABDOMEN: Liver: There are several smooth lobular cysts in the liver measuring up to 6.1 cm in the left. No follow-up is required. The liver is enlarged measuring 23 cm craniocaudad. No focal liver mass lesion is seen. Gallbladder and bile ducts: Slight gallbladder wall thickening. The gallbladder is fully distended but nondilated. No calcified stones. Pancreas: Unremarkable. No mass. No ductal dilation. Spleen: The spleen is enlarged measuring 16.3 cm craniocaudad. No focal splenic lesion is seen. Adrenals: Unremarkable. No mass. Kidneys and ureters: Unremarkable. No solid mass. No hydronephrosis. Stomach and bowel: Bowel loops are nondilated. No acute inflammatory changes are seen involving the bowel. No mucosal thickening. PELVIS: Appendix: No findings to suggest acute appendicitis. Bladder: Unremarkable. No mass. Reproductive: Unremarkable as visualized. ABDOMEN and PELVIS: Intraperitoneal space: Small amount of edema in the upper abdominal mesentery, inferior to the pancreas and stomach. No free air. No significant fluid collection. Bones/joints: No acute fracture. No dislocation. Soft tissues: Unremarkable. Vasculature: Unremarkable. No abdominal aortic aneurysm. Lymph nodes: There is a single enlarged lymph node in the jean pierre hepatis measuring 12 mm short axis diameter. This is nonspecific. IMPRESSION: 1. Small amount of edema in the upper abdominal mesentery, inferior to the pancreas and stomach. Consider mild acute pancreatitis. No pseudocyst or abscess is seen. 2. Slight gallbladder wall thickening. The gallbladder is fully distended but nondilated. Given the ultrasound study showing cholelithiasis, mild acute cholecystitis can not be excluded. 3. Bowel loops are nondilated. No acute inflammatory changes are seen involving the bowel. Electronically signed by: Farzad Hutchinson MD 03/08/25 22:51 PM Gallbladder Ultrasound 03/08/25 19:27 Exam(s): US GALLBLADDER EXAM: US Abdomen Limited, Gallbladder CLINICAL HISTORY: Reason for exam: RUQ abd pain. PAIN: Abdominal Pain: RUQ Pain TECHNIQUE: Real-time ultrasound of the right upper quadrant with image documentation. COMPARISON: No relevant prior studies available. FINDINGS: Liver: Portal vein is patent with normal hepatopetal flow. There is a slightly lobular 6.4 x 5.5 x 5.2 cm cysts in the left liver lobe. Gallbladder: The gallbladder is elongated measuring 11.4 cm. There is a layer of tiny stones and sludge dependently. The wall thickness is normal. No surrounding fluid. Sonographic Hughes's sign is negative. Common bile duct: The common bile duct is nondilated measuring 6 mm. No choledocholithiasis is seen. Pancreas: The visualized portion of the pancreas is unremarkable. No pancreatic duct dilation is seen. Right kidney: The right kidney measures 8.5 cm with normal appearance. No hydronephrosis. Lymph nodes: There is a smooth oval hypoechoic structure measuring 1.6 x 0.9 cm with fatty hilum adjacent to the pancreatic head, likely and upper normal lymph node. Free fluid: No free fluid. IMPRESSION: 1. There is a smooth oval hypoechoic structure measuring 1.6 x 0.9 cm with fatty hilum adjacent to the pancreatic head, likely and upper normal lymph node. Consider CT for further characterization and to rule out mass. 2. There is a slightly lobular 6.4 x 5.5 x 5.2 cm cysts in the left liver lobe. 3. The gallbladder is elongated measuring 11.4 cm. There is a layer of tiny stones and sludge dependently. The wall thickness is normal. No surrounding fluid. Sonographic Hughes's sign is negative. Electronically signed by: Farzad Hutchinson MD 03/08/25 21:37 PM Cholangiopancreatography MRI 03/09/25 00:31 EXAM: MR MRCP CLINICAL HISTORY: acute cholecystitis, questionable stone TECHNIQUE: Multiplanar/multisequence MRI of the abdomen was performed without use of gadolinium. COMPARISON: None. FINDINGS: The liver is enlarged in size measuring 22cm in cranio-caudal dimension. A well defined lobulated T2 hyperintense cystic lesion measuring 6cm is seen in left lobe. Few other similar T2 hyperintense cystic lesions measuring 1 to 2cm are seen in the left lobe. Rest of the liver shows normal signal intensity. No evidence of intrahepatic biliary ductal dilatation. The gallbladder is overdistended and shows multiple small T2 hypointense calculi measuring 3 to 5mm. Mild gall bladder wall edema with pericholecystic fluid is seen. Limited evaluation of the bowel secondary to peristalsis, however, demonstrates no definitive abnormality. The pancreas is unremarkable. Spleen is enlarged measuring 17cm in size with normal signal intensity. The kidneys demonstrate no evidence of contour-deforming mass lesion. The adrenal glands demonstrate no gross mass. No evidence of mesenteric mass. Minimal ascites is seen. IMPRESSION: 1. Over distended gall bladder with cholelithiasis and mild wall edema suggestive of acute cholecystitis. Advised clinical correlation. 2. 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 3. Splenomegaly. 4. Minimal ascites. Electronically signed by Kristopher Chamberlain 03-09-2025 03:33 AM Hepatobiliary Scan Nuclear Medicine 03/09/25 09:36 NUCLEAR MEDICINE HEPATOBILIARY SCAN CLINICAL HISTORY: Abdominal pain. Distended gallbladder. Cholelithiasis. COMPARISON: Right upper quadrant ultrasound and CT of the abdomen and pelvis March 08, 2025. MRCP March 09, 2025. TECHNIQUE: 5.4 mCi of technetium 99m Choletec IV was injected at 10:20 AM on March 09, 2025. Immediately following injection, imaging of the abdomen was carried out for 60 minutes in the anterior projection. FINDINGS: Hepatic uptake of radiotracer is prompt and homogeneous. Radiotracer activity is identified within the common bile duct at 30 minutes, gallbladder at 25 minutes and small bowel at 30 minutes. There is normal distribution of radiotracer. IMPRESSION: Patent cystic duct. No scintigraphic evidence for acute cholecystitis. ACT 112: Negative or not required by law. Electronically signed by: Markel Hernandez M.D. 03/09/2025 11:38 AM PG Care Time/CCT Total # of Minutes Spent Total Time Spent with Patient: Total time spent is greater than 50% in coordination of care (as documented) at patient's floor/unit and/or counseling patient: Coding Level of Care Code 57497 SUB INP/OBS CARE 2/35MIN Diagnoses Pancreatitis, acute K85.90 Acute cholecystitis K81.0 Transaminitis R74.01 Acute hyperkalemia E87.5 Leukocytosis D72.829
[2025-03-11 06:27] LABS: Hematocrit (blood only) 28.8 % (37.0-47.0); Hemoglobin 9.2 g/dL (12.0-16.0); Mean Corpuscular Hemoglobin 29.8 pg (25.0-34.0); Mean Corpuscular Volume 93.2 fL (80.0-100.0); Platelet Count 94 K/uL (130-400); RDW Standard Deviation 57.6 fL (36.4-46.3); Red Blood Count 3.09 M/uL (4.20-5.40); White Blood Count 94.51 K/ul (4.8-10.8)
[2025-03-11 06:45] LABS: Alanine Aminotransferase 57.0 U/L (7-52); Albumin Globulin Ratio 1.6 (0.9-2); Albumin Level 3.5 gm/dl (3.4-5.0); Alkaline Phosphatase 55.0 U/L (34-104); Anion Gap 5.0 (3-11); Bilirubin,Total 0.7 mg/dl (0.2-1.0); Blood Urea Nitrogen 9.0 mg/dl (6-23); Carbon Dioxide 27.0 mmol/L (21-32); Chloride 106.0 mmol/L (98-107); Creatinine Clr Calc Pharmacy 82.1 ml/min; Globulin 2.2 gm/dl (2.5-4.0); Glucose 97.0 mg/dl (70-99(Fasting)); Lipase 54.0 U/L (11-82); Potassium 5.0 mmol/L (3.5-5.1); Sodium 138.0 mmol/L (136-145); Total Protein 5.7 gm/dl (6.0-8.3)
[2025-03-11 06:48] LABS: Calcium 8.5 mg/dl (8.6-10.3)
[2025-03-11 07:58] LABS: ALC (manual) 71.83 K/uL (1.2-3.4); ANC (manual) 12.29 K/uL (1.4-6.5); Prolymphocyte # (manual) 2.84 K/uL (0-0); Prolymphocyte % (manual) 3 %; Smudge Cells Present
[2025-03-11 11:42] VITALS: PULSE 74; RESP 20; TEMP 98.1; O2SAT 98
--- NOTE | 2025-03-11 13:53 | Discharge Summary ---
Discharge Summary Date of Service March 11, 2025 Principal Dx & Hospital Course #1 = Principal Diagnosis (1) Pancreatitis, acute: RESOLVED with a tincture of time. Advanced diet from NPO, 1 liter of 0.9% NS @ 999 mL/hr (03/08/2025, 10:10pm), 2 liters of lactated Ringers @ 125 mL/hr (03/09/2025, 3:00am, 1:16pm) to a clear liquid diet on 03/09/2025 pm, followed by advancement from clear liquid diet to regular diet on 03/10/2025 am. Patient tolerates regular diet well on 03/11/2025. cf., Lipase 5,326 U/L (03/08/2025, 9:04pm). cf., Lipase 1,264 U/L (03/09/2025, 8:06am). cf., Lipase 81 U/L (03/10/2025, 8:47am). cf., Lipase 54 U/L (03/11/2025, 6:03am). (2) Acute cholecystitis: RESOLVING with zosyn 4.5g IV x 1 dose (03/08/2025, 10:11pm), followed by zosyn 4.5g IV q8 x 7 doses (day #1/ on 03/09/2025, 5:45am, 1:17pm, 10:00pm; 03/10/2025, 5:40am, 1:55pm. 9:01pm; 03/11/2025, 5:59am). Patient has no complaints of nausea, vomiting, diarrhea, or abdominal pain/pelvic pain on discharge date 03/11/2025. Patient was subsequently discharged back to her home on 03/11/2025 with an electronic prescription for augmentin 875mg/125mg PO q12, #14 tablets, no refills, transmitted to her [id number], [address], [place] [address], on 03/11/2025, prior to hospital discharge back to her home on 03/11/2025. (3) Transaminitis: RESOLVING with zosyn 4.5g IV x 1 dose (03/08/2025, 10:11pm), followed by zosyn 4.5g IV q8 x 7 doses (day #1/ on 03/09/2025, 5:45am, 1:17pm, 10:00pm; 03/10/2025, 5:40am, 1:55pm. 9:01pm; 03/11/2025, 5:59am). cf., AST 123 U/L, ALT 196 U/L, ALK PHOS 82 U/L (03/08/2025, 9:04pm). cf., AST 62 U/L, ALT 143 U/L, ALK PHOS 71 U/L (03/09/2025, 6:43am). cf., AST 28 U/L, ALT 80 U/L, ALK PHOS 59 U/L (03/10/2025, 8:47am). cf., AST 19 U/L, ALT 57 U/L, ALK PHOS 55 U/L (03/11/2025, 6:03am). (4) Acute hyperkalemia: RESOLVED with regular insulin 5 units IV x 1 dose (03/08/2025, 10:05pm), calcium gluconate 1g IV x 1 dose (03/08/2025, 10:03pm), 50mL of I70-nshzt IV x 1 dose (03/08/2025, 10:01pm). cf., K 6.1 mmol/L (03/08/2025, 9:04pm). cf., K 5.5 mmol/L (03/09/2025, 12:55am). cf., K 4.6 mmol/L (03/09/2025, 6:43am). cf., K 5.1 mmol/L (03/10/2025, 8:47am). cf., K 5.0 mmol/L (03/11/2025, 6:03am). (5) Leukocytosis: cf., WBC 108.86, N8 L62 prolymphocytes7 reactive lymphocytes 23 (03/08/2025, 9:04pm). cf., WBC 115.34, no differential smudge cells noted (03/09/2025, 6:43am). cf., WBC 95.78, N6 L78 M14 E1 smudge cells noted (03/10/2025, 8:47am). cf., WBC 94.51, N13 L73 prolymphocytes3 M10 E1 smudge cells noted (03/11/2025, 6:03am). Given lymphocytic predominance of acute leukocytosis without blasts, myelocytes, or promyelocytes, and the presence of hepatosplenomegaly on 03/09/2025, 12:31am MRCP, I surmise that this patient suffers from a clonal proliferation of dysfunctional B cells (e.g., CLL), and for which, patient awaits official results of [facility] FLOW Lymph/Leukocyte standard/routine testing (03/09/2025, 8:06am) and which will be further evaluated with outpatient Hematology-Oncology Service followup with [facility] Heme-Onc Dr. 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 Plan Patient is a 64-year-old female without significant past medical history. She presented due to 2 days of right upper quadrant pain that was worsening and became diffuse as well as 1 episode of vomiting. Workup in the ED revealed possible acute cholecystitis with stones present as well as acute pancreatitis (lipase 5326). She has transaminitis, hyperkalemia, and significant leukocytosis with WBC 108.86. She is being admitted under the hospital medicine team with consults placed to GI and general surgery. #Acute gallstone pancreatitis/acute cholecystis - Lipase 5326, AST 123, ALT 196, with marked leukocytosis noted below. CTAP showed acute pancreatitis, slight gallbladder wall thickening. Gallbladder US showed layer of stones and sludge with normal wall thickness. Abd nontender on admission. - received 1L NSS bolus in ED, continue fluid resuscitation with LR @ 125 ml/hr - NPO status - nausea control with Zofran prn - pain control with IV Toradol prn, morphine 2/4mg for breakthrough pain - avoiding Tylenol with transaminitis - continue Zosyn 4.5g IV q8h - GI and general surgery teams consulted - MRCP ordered - trend CBC and CMP #hyperkalemia - K+ 6.1, other electrolytes stable, renal function stable. EKG without T wave changes. Etiology unclear. - given 1g IV calcium gluconate, insulin 5 units IV, dextrose 1 amp in ED - repeat BMP 0100 and with AM labs - monitor on telemetry #leukocytosis - WBC 108.86, unable to obtain differential on admission. Etiology unclear on admission - differential includes but not limited to acute infection above, laboratory error, or malignancy as patient has not seen a PCP in many years and splenomegaly noted on CT. - CBC with diff trend - peripheral smear ordered - consider hem/onc consult once resulted Addendum 0100 - discussion with lab on admission who reached out to pathology - differential consistent with CLL rather than acute process - formal consult placed VTE ppx: SCDs - possible surgical management, thrombocytopenia, and low risk Dispo: PCU Admission HPI Per Admitting Provider Patient is a 64-year-old female without significant past medical history. She presented due to 2 days of right upper quadrant pain that was worsening and became diffuse as well as 1 episode of vomiting. Workup in the ED revealed acute cholecystitis with possible stones present as well as acute pancreatitis (lipase 5326). She has transaminitis, hyperkalemia, and significant leukocytosis with WBC 108.86. she is being admitted under the hospital medicine team with consults placed to GI and general surgery. Patient seen at bedside. She stated Thursday afternoon from 03-20 she ate her normal lunch which consisted of veggies, and [place] muffin, and barbecue chicken. Around 2 to 3 PM she developed significant right upper quadrant pain that radiated to her shoulder. Throughout the evening Thursday she had persistent right upper quadrant pain which she stated was similar to an episode about 1 year ago and another episode several years ago. These previous episodes were associated with her eating peanuts and resolved after she rested that evening. This time her symptoms persisted throughout the night which was c oncerning for her. After grocery shopping Thursday morning she had 2 deviled eggs at home and then had an episode of vomiting. After the episode she stated her abdominal pain was all over and seemed to move frequently. She denies any radiation to her back. She has had several episodes of chills and shaking however no reported fevers at home. Her pain is currently 0/10 at bedside if she is laying in 1 position which is most comfortable on her left side. She does feel significantly dehydrated as she has had poor p.o. intake for the past 2 days and also reported feeling bloated which is now resolving. She denies any nicotine or alcohol use, she does not use any home medications. She wishes to be full code. Discussion with general surgery team - will keep NPO, order MRCP, consult GI, and treat conservatively for now. No emergent need for acute cholecystectomy. Discussion with labdifficulty obtaining differential given machine malfunction however later returned appearing as though there is significant lymphocytes and pathologist believes this is CLL rather than an acute process. Peripheral smear and path consult to be sent Discharge Exam Constitutional General: Comfortable, coherent, cooperative. Wide awake and alert. Not confused, lethargic, or obtunded. Patient speaks in complete, fluent, and articulate sentences without pause, interruption, cough, or wheeze. HEENT: Normocephalic, atraumatic. PERRL. EOMI. No nystagmus, gaze paresis, anisocoria, miosis, mydriasis, hyphema, scleral injection, conjunctivitis, or pterygium. No otorrhea. No rhinorrhea. No pharyngeal erythema, edema, ulceration, or discharge. Neck: Supple, no stridor, bruit, or goiter. Jugular venous pressure is estimated at 3 cm above the sternal angle of Jovan, which is 5 cm above the level of the right atrium. Lymph: No pre-auricular, post-auricular, supraclavicular, infraclavicular, axillary, epitrochlear, or inguinal adenopathy. Chest: Symmetric rise and fall with respirations. Non-tender to palpation. Heart: Regular rate and rhythm. S1 and S2 noted. No S3 or S4 summation gallop noted. Grade II/ early systolic murmur @ LLSB without radiation to the carotids, axilla, or back, and which remains invariant in regards to the respiratory cycle. Lungs: Clear to auscultation and percussion. No audible expiratory wheeze, egophony, pectoriloquy, increase in tactile fremitus, or flatness/dullness to percussion at the bases. Abdomen: Soft, non-tender, non-distended. No rebound, guarding, Hughes's sign, or organomegaly. Bowel sounds auscultated in all 4 quadrants. Pelvis: Soft, non-tender, non-distended. Extremities: No clubbing, cyanosis, or edema. 2+ pedal pulses bilaterally. Skin: No decubitus ulcer, exanthem, or enanthem. Neurology: Alert and oriented in regards to person, place, time, and situation. DTR+. 5/5 motor strength in all 4 extremities, both proximally and distally. Urology: No silverman catheter. No purewick. No urethral discharge. Psych: Smiles appropriately. No flat affect. Discharge Plan Discharge Items Patient Disposition: Home - Self-Care Reason For Visit: PANCREATITIS, CHOLECYSTITIS, HYPERKALEMIA Discharge Diagnosis: 1. Acute gallstone pancreatitis, non-necrotizing, RESOLVED with patient tolerating regular diet well and with admission lipase 5,326 U/L (03/08/2025, 9:04pm); cf., discharge lipase 54 U/L (03/11/2025, 6:03am). 2. Acute cholecystitis, RESOLVING well on zosyn 4.5g IV x 1 dose (03/08/2025, 10:11pm), followed by zosyn 4.5g IV q8 x 7 doses (day #1/ on 03/09/2025, 5:45am, 1:17pm, 10:00pm). 3. Acute hyperkalemia, RESOLVED with admission K 6.1 mmol/L (03/08/2025, 9:04pm); cf., discharge K 5.0 mmol/L (03/11/2025, 6:03am). 4. Presumed diagnosis of CLL (see below) with flow cytometry results (03/09/2025, 8:06am [facility] FLOW Lymph/Leukocytes standard routine test) pending as of 03/11/2025, 2:50pm. Condition on Discharge: Fair Health Concerns: Start eating 1-2 ounces of sauerkraut and 1-2 ounces of kimchi with breakfast, lunch, and dinner, for the next 30 days, to restore the normal gut ramandeep, killed off by zosyn 4.5g IV x 1 dose (03/08/2025, 10:11pm), followed by zosyn 4.5g IV q8 x 7 doses (day #1/ on 03/09/2025, 5:45am, 1:17pm, 10:00pm; 03/10/2025, 5:40am, 1:55pm. 9:01pm; 03/11/2025, 5:59am), and now augmentin 875mg/125mg PO q12 x 7 days (03/11/2025 - 03/17/2025). Activity: Resume your previous activity Lifting: Gradually increase as tolerated Bathing: No limitations Sexual Activity: When tolerated Exercise/Sports: Gradually increase as tolerated Driving/Machine Use: No limitations Weightbearing: Full weightbearing Non-emergency contact: Primary Care Provider Call non-emergency contact if: you have any medication questions Follow-up/Referrals: Lissette Núñez MD [Physician] - (Follow up official flow cytometry (03/09/2025, 8:06am) results with presumed diagnosis of CLL with Heme-Onc Dr. Lissette Núñez within 5-7 days of hospital discharge.) Triston Ignacio MD [Surgeon] - (follow up as needed for possible cholecystectomy ) PCP,NO [Primary Care Provider] - Diet: Regular Addtl Attending Provider Instructions: See your PCP Dr. Triston Ignacio within 5-7 days of hospital discharge for routine follow up visit. See your new Heme-Onc Dr. Lissette Núñez within 5-7 days of hospital discharge to discuss official flow cytometry (03/09/2025, 8:06am) results with presumed diagnosis of CLL. Pending Studies at Discharge: Yes Stand-Alone Forms: [facility] Dec[facility], Smoking Cessation Medications and DC Order Prescriptions: New amoxicillin-pot clavulanate 875-125 mg tablet 1 tab PO Q12H Qty: 14 0RF Discharge Orders: Discharge Order (Routine); Ordered 03/11/25 Ordered By: Abdi Cottrell Admission Data Admit Date/Time: 03/08/25 23:59 Attending Provider: Abdi Cottrell Admit Provider: Lola Hutchinson Primary Care Provider: PCP,NO Other Providers: Triston Ignacio; Kee Tomlin; Lola Hutchinson Hospital Stay Data Consultations 03/08/25 23:01 Consult Gastroenterology Routine Consult General Surgery Stat 03/08/25 23:41 ED Decision to Admit Stat Diagnostic Imagining Performed 03/08/25 19:27 CT Abd and Pelvis [CT abd pelvis IV con only] Stat US gallbladder Stat 03/09/25 00:31 MR MRCP Urgent Pending Results Patient Have Any Pending Studies at Discharge: Yes Discharge Instructions Given to Patient (Per Discharging Provider) See your PCP Dr. Triston Ignacio within 5-7 days of hospital discharge for routine follow up visit. See your new Heme-Onc Dr. Lissette Núñez within 5-7 days of hospital discharge to discuss official flow cytometry (03/09/2025, 8:06am) results with presumed diagnosis of CLL. Total Time Total Time Spent Total Time Spent (In Minutes): 35 minutes. Of this time period, 19 minutes were spent in coordinating patient's discharge. Coding Level of Care Code 23689 INP/OBS DISCH >30 MIN Diagnoses Pancreatitis, acute K85.90 Acute cholecystitis K81.0 Transaminitis R74.01 Acute hyperkalemia E87.5 Leukocytosis D72.829
[2025-03-11 15:10] VITALS: BP 124/69
== END 2025-03-11 15:09 | disposition home or self-care (01) | DRG 439 ==
LOC: SUATTDRO → ED 18:55 → 2S 23:59 → SUATTDRO 23:59 → 2S 03-09 01:26